=== PATIENT | male | born 1975 | race Caucasian/White ===

== ENCOUNTER 2018-11-16 15:56 | Emergency (ER) | payer SELFPAY ==
--- NOTE | 2018-11-16 16:42 | EDPHYS ---
Physician Documentation [facility] Name: Sheldon Silverman Age: 43 yrs Sex: Male : 1975 Arrival Date: 11/16/2018 Time: 16:00 Bed 13 Private MD: ED Physician Maximilian Armenta HPI: 11/16 16:34 This 43 yrs old Male presents to ER via Ambulatory with complaints of Skin cp Sore(s). 16:34 Onset: The symptoms/episode began/occurred gradually. Associated signs and symptoms: cp Pertinent negatives: abdominal pain, chest pain, fever. Historical: - Allergies: 16:16 No Known Allergies; ss - Immunization history:: Adult Immunizations up to date. - Social history:: Smoking status: Patient uses tobacco products, smokes three packs cigarettes per day. - Ebola Screening: : Patient denies exposure to infectious person Patient denies travel to an Ebola-affected area in the 21 days before illness onset. ROS: 16:35 Eyes: Negative for injury, pain, redness, and discharge. cp 16:35 Constitutional: Negative for body aches, chills, fever, poor PO intake. 16:35 ENT: Negative for drainage from ear(s), ear pain, sore throat, difficulty swallowing, difficulty handling secretions. 16:35 Cardiovascular: Negative for chest pain. 16:35 Respiratory: Negative for cough, shortness of breath. 16:35 Abdomen/GI: Negative for abdominal pain, nausea, vomiting, and diarrhea. 16:35 MS/extremity: Positive for pain, of the right foot and left foot. 16:35 Skin: Positive for of the right hand and left hand, skin sores. 16:35 All other systems are negative. Exam: 16:36 Head/Face: Normocephalic, atraumatic. cp 16:36 Constitutional: The patient appears in no acute distress, alert, awake, non-toxic, well developed, well nourished, unkempt. 16:36 Musculoskeletal/extremity: Extremities: grossly normal except: noted in the plantar surface of right foot and left foot: skin appears macerated. 16:36 Skin: cellulitis, that is mild, on the dorsal side of right and left wrists. Vital Signs: 16:16 BP 120 / 76; Pulse 82; Resp 16; Temp 98.6(TE); Pulse Ox 97% on R/A; Weight 83.91 kg; ss Height 5 ft. 9 in. (175.26 cm); Pain 8/10; 16:16 Body Mass Index 27.32 (83.91 kg, 175.26 cm) ss MDM: 16:16 Patient medically screened. cp 16:38 Data reviewed: vital signs, nurses notes, and as a result, I will discharge patient. cp Administered Medications: No medications were administered Disposition: 11/16/18 16:40 Discharged to Home. Impression: Local infection of the skin and subcutaneous tissue, unspecified - left and right wrists and feet. - Condition is Stable. - Discharge Instructions: Staphylococcal Infection. - Prescriptions for Bactroban 2 % Topical Ointment - Apply to affected area 1 application by TOPICAL route every 12 hours; 30 gram. Bactrim DS 800- 160 mg Oral Tablet - take 1 tablet by ORAL route every 12 hours for 10 days; 20 tablet. - Medication Reconciliation Form, Thank You Letter, Antibiotic Education, Prescription Opioid Use form. - Follow up: Private Physician; When: 2 - 3 days; Reason: Recheck today's complaints. - Problem is new. - Symptoms are unchanged. Addendum: 11/21/2018 09:44 Co-signature as Attending Physician, Maximilian Armenta MD I agree with the assessment and k dr plan of care. Signatures: Maximilian Armenta MD MD [facility] Jenelle Low RN RN ss Destinee Mann RN RN ph Carlton Rice, JOSELUIS PA cp Corrections: (The following items were deleted from the chart) 11/16 17:12 16:40 11/16/2018 16:40 Discharged to Home. Impression: Local infection of the skin and ph subcutaneous tissue, unspecified - left and right wrists and feet. Condition is Stable. Forms are Medication Reconciliation Form, Thank You Letter, Antibiotic Education, Prescription Opioid Use. Follow up: Private Physician; When: 2 - 3 days; Reason: Recheck today's complaints. Problem is new. Symptoms are unchanged. cp
--- NOTE | 2018-11-16 16:42 | ER ---
Nurse's Notes [facility] Name: Sheldon Silverman Age: 43 yrs Sex: Male : 1975 Arrival Date: 11/16/2018 Time: 16:00 Bed 13 Private MD: Diagnosis: Local infection of the skin and subcutaneous tissue, unspecified-left and right wrists and feet Presentation: 11/16 16:15 Presenting complaint: Patient states: skin sores to bilateral hands/ wrists that began ss "during the summer". Transition of care: patient was not received from another setting of care. Onset of symptoms is unknown. Risk Assessment: Do you want to hurt yourself or someone else? Patient reports no desire to harm self or others. Initial Sepsis Screen: Does the patient meet any 2 criteria? No. Patient's initial sepsis screen is negative. Does the patient have a suspected source of infection? No. Patient's initial sepsis screen is negative. Care prior to arrival: None. 16:15 Method Of Arrival: Ambulatory ss 16:15 Acuity: LANE 4 ss Historical: - Allergies: 16:16 No Known Allergies; ss - Immunization history:: Adult Immunizations up to date. - Social history:: Smoking status: Patient uses tobacco products, smokes three packs cigarettes per day. - Ebola Screening: : Patient denies exposure to infectious person Patient denies travel to an Ebola-affected area in the 21 days before illness onset. Screenin:30 Abuse screen: Denies threats or abuse. Denies injuries from another. Nutritional ph screening: No deficits noted. Tuberculosis screening: No symptoms or risk factors identified. Fall Risk None identified. Assessment: 16:09 Reassessment: called to triage, no answer. ss 16:30 General: Appears in no apparent distress. comfortable, slender, unkempt, Behavior is ph calm, cooperative, quiet, Denies fever, feeling ill. Pain: Denies pain. Neuro: Level of Consciousness is awake, alert, obeys commands, Oriented to person, place, time, situation. Respiratory: Airway is patent Respiratory effort is even, unlabored. Derm: Skin is healthy with good turgor, Skin is pink, warm \\T\\ dry. Wound noted Other: maría hands and wrists, blistered in appearance. Musculoskeletal: Circulation, motion, and sensation intact. Range of motion: intact in all extremities. Vital Signs: 16:16 BP 120 / 76; Pulse 82; Resp 16; Temp 98.6(TE); Pulse Ox 97% on R/A; Weight 83.91 kg; Height 5 ft. 9 in. (175.26 cm); Pain 8/10; 16:16 Body Mass Index 27.32 (83.91 kg, 175.26 cm) ED Course: 16:00 Patient arrived in ED. as 16:13 Destinee Mann, RN is Primary Nurse. ph 16:14 Carlton Rice PA is PHCP. cp 16:14 Maximilian Armenta MD is Attending Physician. cp 16:16 Triage completed. ss 16:16 Arm band placed on right wrist. 16:30 Patient has correct armband on for positive identification. Bed in low position. Call ph light in reach. Side rails up X 1. Pulse ox on. NIBP on. 17:10 No provider procedures requiring assistance completed. Patient did not have IV access ph during this emergency room visit. Administered Medications: No medications were administered Outcome: 16:40 Discharge ordered by MD. cp 17:12 Patient left the ED. ph 17:12 Discharged to home ambulatory. ph 17:12 Condition: good 17:12 Discharge instructions given to patient, Instructed on discharge instructions, follow up and referral plans. medication usage, Demonstrated understanding of instructions, follow-up care, medications, Prescriptions given X 2. Signatures: Monae Crockett Shelby, RN RN Destinee Mann RN RN Carlton Rice PA PA cp
[2018-11-16 18:22] VITALS: BP 120/76; TEMP 98.6; O2SAT 97
== END 2018-11-16 17:12 | disposition home or self-care (01) ==
LOC: ER 15:56
DX: L08.9 Local infection of the skin and subcutaneous tissue, unspecified (principal); F17.210 Nicotine dependence, cigarettes, uncomplicated
CPT/HCPCS: 99283

== ENCOUNTER 2018-11-25 06:10 | Emergency (ER) | payer SELFPAY ==
--- NOTE | 2018-11-25 06:38 | ER ---
Nurse's Notes [facility] Name: Sheldon Silverman Age: 43 yrs Sex: Male : 1975 Arrival Date: 11/25/2018 Time: 06:22 Bed 20 Private MD: Diagnosis: Low back pain Presentation: 11/25 06:24 Presenting complaint: EMS states: "Nontraumatic low back pain since patient walked from [address] to [place]." Patient said he started walking since March 2015 until 2019. Transition of care: patient was not received from another setting of care. Onset of symptoms is unknown. Risk Assessment: Do you want to hurt yourself or someone else? Patient reports no desire to harm self or others. Initial Sepsis Screen: Does the patient meet any 2 criteria? HR > 90 bpm. Does the patient have a suspected source of infection? No. Patient's initial sepsis screen is negative. Care prior to arrival: None. 06:24 Method Of Arrival: EMS: [facility] 06:24 Acuity: LANE 4 cc3 Triage Assessment: 06:20 General: Appears in no apparent distress. comfortable, Behavior is calm, cooperative, cc3 appropriate for age. Pain: Complains of pain in low back Pain currently is 10 out of 10 on a pain scale. Quality of pain is described as aching, Pain began years ago. EENT: No signs and/or symptoms were reported regarding the EENT system. Neuro: Level of Consciousness is awake, alert, obeys commands, Oriented to person, place, time. Cardiovascular: Denies chest pain, Capillary refill < 3 seconds Patient's skin is warm and dry. Respiratory: Airway is patent Respiratory effort is even, unlabored, Respiratory pattern is regular, symmetrical. GI: Abdomen is round. : No signs and/or symptoms were reported regarding the genitourinary system. Derm: Skin has lesions on generalized all over his body has blisters on generalized on all over his body. Musculoskeletal: Circulation, motion, and sensation intact. Range of motion: intact in all extremities. Historical: - Allergies: 06:20 No Known Allergies; cc3 - Home Meds: 06:20 Ibuprofen Oral [Active]; cc3 - PSHx: 06:20 breast plate titanium; cc3 - Immunization history:: Adult Immunizations not up to date. - Social history:: Smoking status: Patient uses tobacco products, cigars. - Ebola Screening: : No symptoms or risks identified at this time. Screenin:20 Abuse screen: Denies threats or abuse. Denies injuries from another. Nutritional cc3 screening: No deficits noted. Tuberculosis screening: No symptoms or risk factors identified. Fall Risk Ambulatory Aid- None/Bed Rest/Nurse Assist (0 pts). Gait- Normal/Bed Rest/Wheelchair (0 pts) Mental Status- Oriented to own ability (0 pts). Assessment: 06:20 General: see triage assessment. cc3 07:00 Reassessment: Patient appears in no apparent distress at this time. Patient and/or cc3 family updated on plan of care and expected duration. Pain level reassessed. Patient is alert, oriented x 3, equal unlabored respirations, skin warm/dry/pink. NATI Laws discharged the patient home with prescription. NO IV cannula in situ. Patient left ER vitally stable and ambulatory. No valuables left in the patient's room. Patient denies pain at this time. Patient states feeling better. Patient states symptoms have improved. Vital Signs: 06:22 BP 123 / 85; Pulse 104; Resp 18 S; Temp 99.1(O); Pulse Ox 100% on R/A; Weight 124.74 kg cc3 (R); Height 5 ft. 9 in. (175.26 cm) (R); Pain 10/10; 06:22 Body Mass Index 40.61 (124.74 kg, 175.26 cm) cc3 ED Course: 06:20 Patient has correct armband on for positive identification. Bed in low position. Call cc3 light in reach. Side rails up X 1. Pulse ox on. NIBP on. 06:20 Arm band placed on left wrist. Patient notified of wait time. cc3 06:22 Patient arrived in ED. cc3 06:22 Eusebia Haq FNP-C is [facility]. snw 06:22 Carlton Garcia MD is Attending Physician. snw 06:27 Triage completed. cc3 07:00 No provider procedures requiring assistance completed. Patient did not have IV access cc3 during this emergency room visit. Administered Medications: 06:50 Drug: Flexeril 10 mg Route: PO; cc3 07:00 Follow up: Response: No adverse reaction cc3 Outcome: 06:36 Discharge ordered by MD. carlson 07:00 Discharged to home ambulatory. cc3 07:00 Condition: stable 07:00 Discharge instructions given to patient, Instructed on discharge instructions, follow up and referral plans. medication usage, Demonstrated understanding of instructions, follow-up care, medications, Prescriptions given X 1. 07:09 Patient left the ED. cc3 Signatures: Eusebia Haq, QUETA-C BUSINESS PLANNER-Csnw Romina Russ cc3
--- NOTE | 2018-11-25 06:38 | EDPHYS ---
Physician Documentation [facility] Name: Sheldon Silverman Age: 43 yrs Sex: Male : 1975 Arrival Date: 11/25/2018 Time: 06:22 Bed 20 Private MD: ED Physician Carlton Garcia HPI: 11/25 06:41 This 43 yrs old Male presents to ER via EMS with complaints of back pain. snw 06:41 The patient presents with pain and tenderness. The symptoms are located in the low snw back. Onset: The symptoms/episode began/occurred at an unknown time. The pain does not radiate. The problem was sustained from unknown cause. Modifying factors: The patient symptoms are alleviated by motrin. Severity of symptoms: At their worst the symptoms were moderate. It is unknown whether or not the patient has had similar symptoms in the past. The patient has been recently seen at the [facility] Emergency Department, for unrelated complaints. Historical: - Allergies: 06:20 No Known Allergies; cc3 - Home Meds: 06:20 Ibuprofen Oral [Active]; cc3 - PSHx: 06:20 breast plate titanium; cc3 - Immunization history:: Adult Immunizations not up to date. - Social history:: Smoking status: Patient uses tobacco products, cigars. - Ebola Screening: : No symptoms or risks identified at this time. ROS: 06:40 Constitutional: Negative for fever, chills, and weight loss, Eyes: Negative for injury, snw pain, redness, and discharge, ENT: Negative for injury, pain, and discharge, Neck: Negative for injury, pain, and swelling, Cardiovascular: Negative for chest pain, palpitations, and edema, Respiratory: Negative for shortness of breath, cough, wheezing, and pleuritic chest pain, Abdomen/GI: Negative for abdominal pain, nausea, vomiting, diarrhea, and constipation, : Negative for injury, bleeding, discharge, and swelling, MS/Extremity: Negative for injury and deformity, Skin: Negative for injury, rash, and discoloration, Neuro: Negative for headache, weakness, numbness, tingling, and seizure. 06:40 Back: Positive for pain at rest, pain with movement, of the low back area. Exam: 06:38 Head/Face: Normocephalic, atraumatic. Eyes: Pupils equal round and reactive to light, snw extra-ocular motions intact. Lids and lashes normal. Conjunctiva and sclera are non-icteric and not injected. Cornea within normal limits. Periorbital areas with no swelling, redness, or edema. ENT: Nares patent. No nasal discharge, no septal abnormalities noted. Tympanic membranes are normal and external auditory canals are clear. Oropharynx with no redness, swelling, or masses, exudates, or evidence of obstruction, uvula midline. Mucous membranes moist. Neck: Trachea midline, no thyromegaly or masses palpated, and no cervical lymphadenopathy. Supple, full range of motion without nuchal rigidity, or vertebral point tenderness. No Meningismus. Chest/axilla: Normal chest wall appearance and motion. Nontender with no deformity. No lesions are appreciated. Cardiovascular: Regular rate and rhythm with a normal S1 and S2. No gallops, murmurs, or rubs. Normal PMI, no JVD. No pulse deficits. Respiratory: Lungs have equal breath sounds bilaterally, clear to auscultation and percussion. No rales, rhonchi or wheezes noted. No increased work of breathing, no retractions or nasal flaring. 06:38 Skin: Warm, dry with normal turgor. Normal color with no rashes, no lesions, and no evidence of cellulitis. MS/ Extremity: Pulses equal, no cyanosis. Neurovascular intact. Full, normal range of motion. Neuro: Awake and alert, GCS 15, oriented to person, place, time, and situation. Cranial nerves II-XII grossly intact. Motor strength 5/5 in all extremities. Sensory grossly intact. Cerebellar exam normal. Normal gait. 06:38 Constitutional: The patient appears alert, awake, slow to answer, mild flight of ideas 06:38 Abdomen/GI: Inspection: abdomen appears normal, Bowel sounds: normal, Palpation: mild abdominal tenderness, in the left lower quadrant. 06:38 Back: normal spinal alignment noted, CVA tenderness, is absent. 06:38 Neuro: Exam negative for acute changes. 06:38 Psych: Behavior/mood is cooperative, Affect is flat, Patient has no thoughts/intents to harm self or others. Vital Signs: 06:22 BP 123 / 85; Pulse 104; Resp 18 S; Temp 99.1(O); Pulse Ox 100% on R/A; Weight 124.74 kg cc3 (R); Height 5 ft. 9 in. (175.26 cm) (R); Pain 1010; 06:22 Body Mass Index 40.61 (124.74 kg, 175.26 cm) cc3 MDM: 06:23 Patient medically screened. snw 06:40 Data reviewed: vital signs, nurses notes. Data interpreted: Pulse oximetry: on room air snw is 100 %. Interpretation: normal. Counseling: I had a detailed discussion with the patient and/or guardian regarding: the historical points, exam findings, and any diagnostic results supporting the discharge/admit diagnosis, the presence of at least one elevated blood pressure reading (>120/80) during this emergency department visit, the need for outpatient follow up, to return to the emergency department if symptoms worsen or persist or if there are any questions or concerns that arise at home. Special discussion: Based on the history and exam findings, there is no indication for further emergent testing or inpatient evaluation. I discussed with the patient/guardian the need to see the primary care provider for further evaluation of the symptoms. Administered Medications: 06:50 Drug: Flexeril 10 mg Route: PO; cc3 07:00 Follow up: Response: No adverse reaction cc3 Disposition: 08:10 Co-signature as Attending Physician, Carlton Garcia MD I agree with the assessment and george plan of care. Disposition: 11/25/18 06:36 Discharged to Home. Impression: Low back pain. - Condition is Stable. - Discharge Instructions: Back Pain, Adult, Back Exercises, Back Injury Prevention. - Prescriptions for Cyclobenzaprine 10 mg Oral Tablet - take 1 tablet by ORAL route every 8 hours As needed; 30 tablet. - Medication Reconciliation Form, Thank You Letter, Antibiotic Education, Prescription Opioid Use form. - Follow up: Private Physician; When: 1 week; Reason: Recheck today's complaints, Continuance of care. Signatures: Carlton Garcia MD MD cha Therrien, Shelly, LOGGER-C LOGGER-Ziggyw Romina Russ cc3 Corrections: (The following items were deleted from the chart) 07:09 06:36 11/25/2018 06:36 Discharged to Home. Impression: Low back pain. Condition is cc3 Stable. Forms are Medication Reconciliation Form, Thank You Letter, Antibiotic Education, Prescription Opioid Use. Follow up: Private Physician; When: 1 week; Reason: Recheck today's complaints, Continuance of care. snw
[2018-11-25] MEDS ORDERED: CYCLOBENZAPRINE 10 MG TAB ONE (06:44)
[2018-11-25 07:13] VITALS: BP 123/85; TEMP 99.1; O2SAT 100
== END 2018-11-25 07:09 | disposition home or self-care (01) ==
LOC: ER 06:10
DX: M54.5 Low back pain (principal); Z72.0 Tobacco use
CPT/HCPCS: 99284

== ENCOUNTER 2018-11-27 12:17 | Emergency (ER) | payer SELFPAY ==
--- NOTE | 2018-11-27 13:49 | ER ---
Nurse's Notes [facility] Name: Sheldon Silverman Age: 43 yrs Sex: Male : 1975 Arrival Date: 11/27/2018 Time: 12:21 Bed 25 Private MD: Diagnosis: Activity, sleeping-now awake Presentation: 11/27 12:24 Presenting complaint: EMS states: patient was sleeping in the bus stop, he looks mg2 dehydrated. somebody called the grocery stock clerk saying that patient was probably convulsing/ shaking in the bus stop. he was here 2 days ago for back pain. Transition of care: patient was not received from another setting of care. Onset of symptoms was November 27, 2018. Risk Assessment: Do you want to hurt yourself or someone else? Patient reports no desire to harm self or others. Initial Sepsis Screen: Does the patient meet any 2 criteria? No. Patient's initial sepsis screen is negative. Does the patient have a suspected source of infection? No. Patient's initial sepsis screen is negative. Care prior to arrival: None. 12:24 Method Of Arrival: EMS: [facility] mg2 12:24 Acuity: LANE 3 mg2 Historical: - Allergies: 12:27 No Known Allergies; mg2 - Home Meds: 12:27 Ibuprofen Oral [Active]; mg2 - PMHx: 12:27 None; mg2 - PSHx: 12:27 None; mg2 - Immunization history:: Flu vaccine status is unknown. - Social history:: Smoking status: Patient uses tobacco products, Patient uses Patient/guardian denies using alcohol, street drugs, The patient lives with family. - Ebola Screening: : No symptoms or risks identified at this time. - Family history:: not pertinent. Screenin:51 Abuse screen: Denies threats or abuse. Denies injuries from another. Nutritional mg2 screening: No deficits noted. Tuberculosis screening: No symptoms or risk factors identified. Fall Risk. Fall Risk. Assessment: 12:52 General: Appears in no apparent distress. comfortable, Behavior is calm, cooperative. mg2 Pain: Denies pain. 13:58 Neuro: Level of Consciousness is awake, alert, obeys commands, Oriented to person, mg2 place, time, situation. Cardiovascular: Capillary refill < 3 seconds Patient's skin is warm and dry. Respiratory: Airway is patent Respiratory effort is even, unlabored, Respiratory pattern is regular, symmetrical. GI: No signs and/or symptoms were reported involving the gastrointestinal system. : No signs and/or symptoms were reported regarding the genitourinary system. EENT: No signs and/or symptoms were reported regarding the EENT system. Derm: Skin is intact, Skin is normal. Musculoskeletal: Circulation, motion, and sensation intact. Capillary refill < 3 seconds. Vital Signs: 12:26 Weight 124.74 kg; Height 6 ft. 0 in. (182.88 cm); mg2 12:50 BP 99 / 65; Pulse 102; Resp 18; Temp 97.7(O); Pulse Ox 95% on R/A; mg2 13:50 BP 100 / 62; Pulse 95; Resp 18; Temp 98; Pulse Ox 100% on R/A; mg2 12:26 Body Mass Index 37.30 (124.74 kg, 182.88 cm) mg2 ED Course: 12:21 Patient arrived in ED. mg2 12:23 Sanaz Vallejo MD is Attending Physician. ma2 12:23 Jose Mackey, LOAN is Primary Nurse. mg2 12:26 Triage completed. mg2 12:28 Arm band placed on. mg2 13:57 No provider procedures requiring assistance completed. Patient did not have IV access mg2 during this emergency room visit. 13:59 Patient has correct armband on for positive identification. mg2 Administered Medications: No medications were administered Outcome: 13:48 Discharge ordered by . ma2 13:57 Discharged to home ambulatory. mg2 13:57 Condition: stable 13:57 Discharge instructions given to patient, Instructed on discharge instructions, follow up and referral plans. Demonstrated understanding of instructions, follow-up care. 14:43 Patient left the ED. mg2 Signatures: Sanaz Vallejo MD MD tn2 Jose Mackey, RN RN mg2 Corrections: (The following items were deleted from the chart) 12:50 12:50 BP 99 / 65; Pulse 102bpm; Resp 18bpm; Pulse Ox 95% RA; mg2 mg2
--- NOTE | 2018-11-27 13:50 | EDPHYS ---
Physician Documentation [facility] Name: Sheldon Silverman Age: 43 yrs Sex: Male : 1975 Arrival Date: 11/27/2018 Time: 12:21 Bed 25 Private MD: ED Physician Sanaz Vallejo HPI: 11/27 13:13 This 43 yrs old Male presents to ER via EMS with complaints of sleeping. ma2 13:13 [place] bus [place] by ems, was brought in to er for evaluation, he has no ma2 symptoms now and is back to baseline. . Onset: The symptoms/episode began/occurred gradually, 1 day(s) ago. Severity of symptoms: At their worst the symptoms were very mild in the emergency department the symptoms are unchanged have resolved. The patient has not experienced similar symptoms in the past. Historical: - Allergies: 12:27 No Known Allergies; mg2 - Home Meds: 12:27 Ibuprofen Oral [Active]; mg2 - PMHx: 12:27 None; mg2 - PSHx: 12:27 None; mg2 - Immunization history:: Flu vaccine status is unknown. - Social history:: Smoking status: Patient uses tobacco products, Patient uses Patient/guardian denies using alcohol, street drugs, The patient lives with family. - Ebola Screening: : No symptoms or risks identified at this time. - Family history:: not pertinent. ROS: 13:13 Constitutional: Negative for fever, chills, and weight loss. ma2 13:13 All other systems are negative. Exam: 13:13 Constitutional: This is a well developed, well nourished patient who is awake, alert, ma2 and in no acute distress. Head/Face: Normocephalic, atraumatic. ENT: Nares patent. No nasal discharge, no septal abnormalities noted. Tympanic membranes are normal and external auditory canals are clear. Oropharynx with no redness, swelling, or masses, exudates, or evidence of obstruction, uvula midline. Mucous membranes moist. Neck: Trachea midline, no thyromegaly or masses palpated, and no cervical lymphadenopathy. Supple, full range of motion without nuchal rigidity, or vertebral point tenderness. No Meningismus. Chest/axilla: Normal chest wall appearance and motion. Nontender with no deformity. No lesions are appreciated. Cardiovascular: Regular rate and rhythm with a normal S1 and S2. No gallops, murmurs, or rubs. Normal PMI, no JVD. No pulse deficits. Respiratory: Lungs have equal breath sounds bilaterally, clear to auscultation and percussion. No rales, rhonchi or wheezes noted. No increased work of breathing, no retractions or nasal flaring. Abdomen/GI: Soft, non-tender, with normal bowel sounds. No distension or tympany. No guarding or rebound. No evidence of tenderness throughout. Back: No spinal tenderness. No costovertebral tenderness. Full range of motion. Skin: Warm, dry with normal turgor. Normal color with no rashes, no lesions, and no evidence of cellulitis. MS/ Extremity: Pulses equal, no cyanosis. Neurovascular intact. Full, normal range of motion. Neuro: Awake and alert, GCS 15, oriented to person, place, time, and situation. Cranial nerves II-XII grossly intact. Motor strength 5/5 in all extremities. Sensory grossly intact. Cerebellar exam normal. Normal gait. Vital Signs: 12:26 Weight 124.74 kg; Height 6 ft. 0 in. (182.88 cm); mg2 12:50 BP 99 / 65; Pulse 102; Resp 18; Temp 97.7(O); Pulse Ox 95% on R/A; mg2 13:50 BP 100 / 62; Pulse 95; Resp 18; Temp 98; Pulse Ox 100% on R/A; mg2 12:26 Body Mass Index 37.30 (124.74 kg, 182.88 cm) mg2 MDM: 12:23 Patient medically screened. ma2 13:13 Differential Diagnosis DD includes "was sleeping", drug use, vs narcolepsies, vs ma2 alcohol use, he is back to baseline and would like to eat and be discharged . Data reviewed: vital signs, nurses notes. Counseling: I had a detailed discussion with the patient and/or guardian regarding: the historical points, exam findings, and any diagnostic results supporting the discharge/admit diagnosis, the presence of at least one elevated blood pressure reading (>120/80) during this emergency department visit, the need for outpatient follow up. Administered Medications: No medications were administered Disposition: 11/27/18 13:48 Discharged to Home. Impression: Activity, sleeping - now awake . - Condition is Stable. - Discharge Instructions: What You Need To Know About Illegal Drug Use and Dependence, Youth. - Medication Reconciliation Form, Thank You Letter, Antibiotic Education, Prescription Opioid Use form. - Follow up: Private Physician; When: Tomorrow; Reason: Continuance of care. Signatures: Sanaz Vallejo MD MD ok2 Jose Mackey RN RN mg2 Corrections: (The following items were deleted from the chart) 13:11 13:05 Blood Transfusion Consent ordered. ma2 mg2 14:43 13:48 11/27/2018 13:48 Discharged to Home. Impression: Activity, sleeping - now awake . mg2 Condition is Stable. Forms are Medication Reconciliation Form, Thank You Letter, Antibiotic Education, Prescription Opioid Use. Follow up: Private Physician; When: Tomorrow; Reason: Continuance of care. ma2
[2018-11-27 14:58] VITALS: BP 100/62; TEMP 98; O2SAT 100
== END 2018-11-27 14:43 | disposition home or self-care (01) ==
LOC: ER 12:17
DX: G47.10 Hypersomnia, unspecified (principal); Z72.0 Tobacco use
CPT/HCPCS: 99283

== ENCOUNTER 2020-09-05 12:44 | Emergency (ER) | payer SELFPAY ==
--- OUTSIDE RECORDS SUMMARY | 2020-09-05 12:51 | XMS REPORT | Continuity of Care Document ---
:1975 Author Organization [facility] t Address [address] [place] [address] Care Team Providers Name Role Phone Unavailable Unavailable Unavailable Payers Payer Name Policy Type Policy Number Effective Date Expiration Date S ource Problems This patient has no known problems. Allergies, Adverse Reactions, Alerts Allergy Allergy Status Severity Reaction(s) Onset Inactive Treating Comm ents Source Name Type Date Date Clinician No DA Active U [facility] 07-28 [facility] [place] [facility] Medications This patient has no known medications. Procedures This patient has no known procedures. Results Test Description Test Time Test Comments Results Result Comments Source COMPREHENSIVE METABOLIC PANEL 2019-08-02 06:22:00 Test Item Value Reference Range Interpretation Comme nts SODIUM (test code = NA) 136 MMOL/L 137-145 L POTASSIUM (test code = K) 4.2 MMOL/L 3.5-5.1 N CHLORIDE (test code = CL) 103 MMOL/L 98-107 N CARBON DIOXIDE (test code = CO2) 30 MMOL/L 22-30 N GLUCOSE (test code = GLU) 101 MG/DL 74-106 N BLOOD UREA NITROGEN (test code = 24 MG/DL 9-20 H BUN) GLOMERULAR FILTRATION RATE (test 59 Reporting units: ml/min/1.73 code = GFR) m2 (Modified M DRD Formula)Referen ce Range: > or = 60 ml/min/1.7 3 m2 CREATININE (test code = CREAT) 1.50 MG/DL 0.66-1.25 H TOTAL PROTEIN (test code = PROT) 7.2 G/DL 6.2-7.6 N ALBUMIN (test code = ALB) 3.3 G/DL 3.5-5.0 L CALCIUM (test code = CA) 8.4 MG/DL 8.4-10.2 N BILIRUBIN TOTAL (test code = 0.5 MG/DL 0.2-1.3 N BILT) SGOT/AST (test code = AST) 20 UNITS/L 17-59 N SGPT/ALT (test code = ALT) 17 UNITS/L <50 ALKALINE PHOSPHATASE (test code 119 UNITS/L 38-126 N = ALKP) [id number] 06:22:00 Test Item Value Reference Range Interpretation Comments MAGNESIUM (test code = MAG) 2.1 MG/DL 1.6-2.3 N COMPREHENSIVE METABOLIC [id number] 06:21:00 Test Item Value Reference Range Interpretation Comments SODIUM (test code = 136 MMOL/L 137-145 L NA) POTASSIUM (test code = 4.2 MMOL/L 3.5-5.1 N K) CHLORIDE (test code = 103 MMOL/L 98-107 N CL) CARBON DIOXIDE (test 30 MMOL/L 22-30 N code = CO2) GLUCOSE (test code = MG/DL 74-106 GLU) BLOOD UREA NITROGEN MG/DL 9-20 (test code = BUN) GLOMERULAR FILTRATION 59 Report ing units: RATE (test code = GFR) ml/mi n/1.73 m2 (Modified MDRD Formula)Referen ce Range: > or = 6 0 ml/min/1.73 m2 CREATININE (test code 1.50 MG/DL 0.66-1.25 H = CREAT) TOTAL PROTEIN (test 7.2 G/DL 6.2-7.6 N code = PROT) ALBUMIN (test code = 3.3 G/DL 3.5-5.0 L ALB) CALCIUM (test code = MG/DL 8.7-9.7 CA) BILIRUBIN TOTAL (test 0.5 MG/DL 0.2-1.3 N code = BILT) SGOT/AST (test code = 20 UNITS/L 17-59 N AST) SGPT/ALT (test code = UNITS/L <50 ALT) ALKALINE PHOSPHATASE 119 UNITS/L 38-126 N (test code = ALKP) [id number] 06:21:00 Test Item Value Reference Range Interpretation Comments MAGNESIUM (test code = MAG) MG/DL 1.6-2.3 COMPREHENSIVE METABOLIC [id number] 06:19:00 Test Item Value Reference Range Interpretation Comments SODIUM (test code = NA) 136 MMOL/L 137-145 L POTASSIUM (test code = K) 4.2 MMOL/L 3.5-5.1 N CHLORIDE (test code = CL) 103 MMOL/L 98-107 N CARBON DIOXIDE (test code = CO2) MMOL/L 22-30 GLUCOSE (test code = GLU) MG/DL 74-106 BLOOD UREA NITROGEN (test code = MG/DL 9-20 BUN) GLOMERULAR FILTRATION RATE (test code = GFR) CREATININE (test code = CREAT) MG/DL 0.66-1.25 TOTAL PROTEIN (test code = PROT) G/DL 6.2-7.6 ALBUMIN (test code = ALB) 3.3 G/DL 3.5-5.0 L CALCIUM (test code = CA) MG/DL 8.7-9.7 BILIRUBIN TOTAL (test code = BILT) MG/DL 0.2-1.3 SGOT/AST (test code = AST) UNITS/L 15-37 SGPT/ALT (test code = ALT) UNITS/L <50 ALKALINE PHOSPHATASE (test code = UNITS/L 38-126 ALKP) [id number] 06:19:00 Test Item Value Reference Range Interpretation Comments MAGNESIUM (test code = MAG) MG/DL 1.6-2.3 COMPREHENSIVE METABOLIC [id number] 06:18:00 Test Item Value Reference Range Interpretation Comments SODIUM (test code = NA) MMOL/L 137-145 POTASSIUM (test code = K) MMOL/L 3.5-5.1 CHLORIDE (test code = CL) 103 MMOL/L 98-107 N CARBON DIOXIDE (test code = CO2) MMOL/L 22-30 GLUCOSE (test code = GLU) MG/DL 74-106 BLOOD UREA NITROGEN (test code = MG/DL 9-20 BUN) GLOMERULAR FILTRATION RATE (test code = GFR) CREATININE (test code = CREAT) MG/DL 0.66-1.25 TOTAL PROTEIN (test code = PROT) G/DL 6.2-7.6 ALBUMIN (test code = ALB) 3.3 G/DL 3.5-5.0 L CALCIUM (test code = CA) MG/DL 8.7-9.7 BILIRUBIN TOTAL (test code = BILT) MG/DL 0.2-1.3 SGOT/AST (test code = AST) UNITS/L 15-37 SGPT/ALT (test code = ALT) UNITS/L <50 ALKALINE PHOSPHATASE (test code = UNITS/L 38-126 ALKP) [id number] 06:18:00 Test Item Value Reference Range Interpretation Comments MAGNESIUM (test code = MAG) MG/DL 1.6-2.3 CBC W/AUTO [id number] 06:07:00 Test Item Value Reference Range Interpretation Comments WHITE BLOOD CELL (test code = 6.9 K/MM3 3.8-9.8 N WBC) RED BLOOD CELL (test code = 3.57 M/MM3 3.95-5.67 L RBC) HEMOGLOBIN (test code = HGB) 11.3 G/DL 12.4-16.7 L HEMATOCRIT (test code = HCT) 34.2 % 35.9-49.5 L MEAN CELL VOLUME (test code = 96 fL 81.7-96.1 N MCV) MEAN CELL HGB (test code = MCH) 31.7 pg 27.6-33.2 N MEAN CELL HGB CONCETRATION 33.0 % 32.9-35.5 N (test code = MCHC) RED CELL DISTRIBUTION WIDTH 12.5 % 12.1-15.2 N (test code = RDW) PLATELET COUNT (test code = 208 K/MM3 129-368 N PLT) MEAN PLATELET VOLUME (test code 10.8 fl 7.4-10.4 H = MPV) NEUTROPHIL % (test code = NT%) 66.9 % 43-75 N IMMATURE GRANULOCYTE % (test 0.7 % 0.0-2.0 N code = IG%) LYMPHOCYTE % (test code = LY%) 20.3 % 14-44 N MONOCYTE % (test code = MO%) 10.4 % 4-13 N EOSINOPHIL % (test code = EO%) 1.4 % 0-6 N BASOPHIL % (test code = BA%) 0.3 % 0-2 N NUCLEATED RBC % (test code = 0.0 % 0-1.0 N NRBC%) NEUTROPHIL # (test code = NT#) 4.62 K/mm3 2.0-7.6 N IMMATURE GRANULOCYTE # (test 0.05 x10 3/uL 0-0.03 H code = IG#) LYMPHOCYTE # (test code = LY#) 1.40 K/mm3 1.0-3.8 N MONOCYTE # (test code = MO#) 0.72 K/mm3 0.1-0.8 N EOSINOPHIL # (test code = EO#) 0.10 K/mm3 0.0-0.2 N BASOPHIL # (test code = BA#) 0.02 K/mm3 0.0-0.2 N NUCLEATED RBC # (test code = 0.00 K/mm3 0.0-0.1 N NRBC#) [id number] 13:06:00 Test Item Value Reference Range Interpretation Comments VANCOMYCIN (test code = VANCO) 21.6 mcg/ML 5.0-26.0 N COMPREHENSIVE METABOLIC [id number] 06:00:00 Test Item Value Reference Range Interpretation Comments SODIUM (test code = 134 MMOL/L 137-145 L NA) POTASSIUM (test code = 4.1 MMOL/L 3.5-5.1 N K) CHLORIDE (test code = 103 MMOL/L 98-107 N CL) CARBON DIOXIDE (test 27 MMOL/L 22-30 N code = CO2) GLUCOSE (test code = 109 MG/DL 74-106 H GLU) BLOOD UREA NITROGEN 27 MG/DL 9-20 H (test code = BUN) GLOMERULAR FILTRATION 55 Report ing units: RATE (test code = GFR) ml/mi n/1.73 m2 (Modified MDRD Formula)Referen ce Range: > or = 6 0 ml/min/1.73 m2 CREATININE (test code 1.60 MG/DL 0.66-1.25 H = CREAT) TOTAL PROTEIN (test 7.0 G/DL 6.2-7.6 N code = PROT) ALBUMIN (test code = 3.1 G/DL 3.5-5.0 L ALB) CALCIUM (test code = 8.1 MG/DL 8.4-10.2 L CA) BILIRUBIN TOTAL (test 0.2 MG/DL 0.2-1.3 N code = BILT) SGOT/AST (test code = 23 UNITS/L 17-59 N AST) SGPT/ALT (test code = 17 UNITS/L <50 ALT) ALKALINE PHOSPHATASE 129 UNITS/L 38-126 H (test code = ALKP) [id number] 06:00:00 Test Item Value Reference Range Interpretation Comments MAGNESIUM (test code = MAG) 1.9 MG/DL 1.6-2.3 N COMPREHENSIVE METABOLIC [id number] 05:56:00 Test Item Value Reference Range Interpretation Comments SODIUM (test code = NA) 134 MMOL/L 137-145 L POTASSIUM (test code = 4.1 MMOL/L 3.5-5.1 N K) CHLORIDE (test code = 103 MMOL/L 98-107 N CL) CARBON DIOXIDE (test 27 MMOL/L 22-30 N code = CO2) GLUCOSE (test code = MG/DL 74-106 GLU) BLOOD UREA NITROGEN MG/DL 9-20 (test code = BUN) GLOMERULAR FILTRATION 55 Report ing units: RATE (test code = GFR) ml/mi n/1.73 m2 (Modified MDRD Formula)Referen ce Range: > or = 6 0 ml/min/1.73 m2 CREATININE (test code = 1.60 MG/DL 0.66-1.25 H CREAT) TOTAL PROTEIN (test 7.0 G/DL 6.2-7.6 N code = PROT) ALBUMIN (test code = 3.1 G/DL 3.5-5.0 L ALB) CALCIUM (test code = MG/DL 8.7-9.7 CA) BILIRUBIN TOTAL (test 0.2 MG/DL 0.2-1.3 N code = BILT) SGOT/AST (test code = 23 UNITS/L 17-59 N AST) SGPT/ALT (test code = UNITS/L <50 ALT) ALKALINE PHOSPHATASE UNITS/L 38-126 (test code = ALKP) [id number] 05:56:00 Test Item Value Reference Range Interpretation Comments MAGNESIUM (test code = MAG) MG/DL 1.6-2.3 COMPREHENSIVE METABOLIC [id number] 05:54:00 Test Item Value Reference Range Interpretation Comments SODIUM (test code = NA) 134 MMOL/L 137-145 L POTASSIUM (test code = K) 4.1 MMOL/L 3.5-5.1 N CHLORIDE (test code = CL) 103 MMOL/L 98-107 N CARBON DIOXIDE (test code = CO2) MMOL/L 22-30 GLUCOSE (test code = GLU) MG/DL 74-106 BLOOD UREA NITROGEN (test code = MG/DL 9-20 BUN) GLOMERULAR FILTRATION RATE (test code = GFR) CREATININE (test code = CREAT) MG/DL 0.66-1.25 TOTAL PROTEIN (test code = PROT) G/DL 6.2-7.6 ALBUMIN (test code = ALB) 3.1 G/DL 3.5-5.0 L CALCIUM (test code = CA) MG/DL 8.7-9.7 BILIRUBIN TOTAL (test code = BILT) MG/DL 0.2-1.3 SGOT/AST (test code = AST) UNITS/L 15-37 SGPT/ALT (test code = ALT) UNITS/L <50 ALKALINE PHOSPHATASE (test code = UNITS/L 38-126 ALKP) [id number] 05:54:00 Test Item Value Reference Range Interpretation Comments MAGNESIUM (test code = MAG) MG/DL 1.6-2.3 COMPREHENSIVE METABOLIC [id number] 05:53:00 Test Item Value Reference Range Interpretation Comments SODIUM (test code = NA) MMOL/L 137-145 POTASSIUM (test code = K) MMOL/L 3.5-5.1 CHLORIDE (test code = CL) MMOL/L 98-107 CARBON DIOXIDE (test code = CO2) MMOL/L 22-30 GLUCOSE (test code = GLU) MG/DL 74-106 BLOOD UREA NITROGEN (test code = MG/DL 9-20 BUN) GLOMERULAR FILTRATION RATE (test code = GFR) CREATININE (test code = CREAT) MG/DL 0.66-1.25 TOTAL PROTEIN (test code = PROT) G/DL 6.2-7.6 ALBUMIN (test code = ALB) 3.1 G/DL 3.5-5.0 L CALCIUM (test code = CA) MG/DL 8.7-9.7 BILIRUBIN TOTAL (test code = BILT) MG/DL 0.2-1.3 SGOT/AST (test code = AST) UNITS/L 15-37 SGPT/ALT (test code = ALT) UNITS/L <50 ALKALINE PHOSPHATASE (test code = UNITS/L 38-126 ALKP) [id number] 05:53:00 Test Item Value Reference Range Interpretation Comments MAGNESIUM (test code = MAG) MG/DL 1.6-2.3 CBC W/AUTO [id number] 05:40:00 Test Item Value Reference Range Interpretation Comments WHITE BLOOD CELL (test code = 6.4 K/MM3 3.8-9.8 N WBC) RED BLOOD CELL (test code = 3.55 M/MM3 3.95-5.67 L RBC) HEMOGLOBIN (test code = HGB) 11.1 G/DL 12.4-16.7 L HEMATOCRIT (test code = HCT) 33.9 % 35.9-49.5 L MEAN CELL VOLUME (test code = 96 fL 81.7-96.1 N MCV) MEAN CELL HGB (test code = MCH) 31.3 pg 27.6-33.2 N MEAN CELL HGB CONCETRATION 32.7 % 32.9-35.5 L (test code = MCHC) RED CELL DISTRIBUTION WIDTH 12.6 % 12.1-15.2 N (test code = RDW) PLATELET COUNT (test code = 188 K/MM3 129-368 PLT) MEAN PLATELET VOLUME (test code 11.2 fl 7.4-10.4 H = MPV) NEUTROPHIL % (test code = NT%) 70.8 % 43-75 N IMMATURE GRANULOCYTE % (test 0.6 % 0.0-2.0 N code = IG%) LYMPHOCYTE % (test code = LY%) 17.4 % 14-44 N MONOCYTE % (test code = MO%) 10.1 % 4-13 N EOSINOPHIL % (test code = EO%) 0.8 % 0-6 N BASOPHIL % (test code = BA%) 0.3 % 0-2 N NUCLEATED RBC % (test code = 0.0 % 0-1.0 N NRBC%) NEUTROPHIL # (test code = NT#) 4.56 K/mm3 2.0-7.6 N IMMATURE GRANULOCYTE # (test 0.04 x10 3/uL 0-0.03 H code = IG#) LYMPHOCYTE # (test code = LY#) 1.12 K/mm3 1.0-3.8 N MONOCYTE # (test code = MO#) 0.65 K/mm3 0.1-0.8 N EOSINOPHIL # (test code = EO#) 0.05 K/mm3 0.0-0.2 N BASOPHIL # (test code = BA#) 0.02 K/mm3 0.0-0.2 N NUCLEATED RBC # (test code = 0.00 K/mm3 0.0-0.1 N NRBC#) VALPROIC ACID (DEPAKENE)2019-07-29 20:07:00 Test Item Value Reference Range Interpretation Comments VALPROIC ACID 60.8 MCG/ML 50-100 N VALPROIC ACID (DEPAKENE) (test code REFERE NCE RANGE: = VALP) mcg/mLMinimal: 50.0Therapeutic : 50.0-120.0Possi ble Toxic: > 100.0S erious Toxic: >200.0 [id number] 20:07:00 Test Item Value Reference Range Interpretation Comments ALCOHOL (test code = ALC) < 10.0 MG/DL <10 VALPROIC ACID (DEPAKENE)2019-07-29 20:01:00 Test Item Value Reference Range Interpretation Comments VALPROIC ACID (DEPAKENE) (test code = MCG/ML 50-100 VALP) [id number] 20:01:00 Test Item Value Reference Range Interpretation Comments ALCOHOL (test code = ALC) < 10.0 MG/DL <10 HIV 12 AB [id number] 17:38:00 Test Item Value Reference Range Interpretation Comments HIV 1 2 COMBO AG/AB SCREEN AB/AG NON REACTIVE NONREACTIVE (test code = [id number]) ARTERIAL BLOOD [id number] 17:24:00 Test Item Value Reference Range Interpretation Comments ARTERIAL BLOOD GAS PH (test code 7.38 mmHg 7.35-7.45 N = PHA) ARTERIAL BLOOD GAS PCO2 (test 40.6 mmHg 35.0-45.0 N code = PCO2A) ARTERIAL BLOOD GAS PO2 (test code 99.9 mmol/L 80.0-100.0 N = PO2A) BICARBONATE TOTAL HCO3 (test code 23.4 mmol/L 20.0-26.0 N = HCO3) BASE EXCESS (test code = ATUL) -1.6 mmol/L -3.0-3.0 N ABG O2 SATURATION (test code = 97.5 % 95.0-100.0 N SATA) ABG DELIVERY (test code = VIKI) RM AIR ABG TEMPERATURE (test code = 37.0 C >37 TEMPA) ABG SITE (test code = SITEA) RR ALLENS TEST (test code = ALLENS) Y CHECK FIO2 (test code = COHBGFFIO2) 21 % DRUGS OF ABUSE SCREEN [id number] 17:07:00 Test Item Value Reference Range Interpretation Comments UR COCAINE (test code = NEGATIVE NEGATIVE Cut off Value: 300 COCAU) ng/mL UR CANNABINOIDS (THC) NEGATIVE NEGATIVE Cut of f Value: 50 (test code = CANU) ng/mL UR AMPHETAMINE (test code NEGATIVE NEGATIVE Cu t off Value: 1000 = AMPHU) ng/mL UR BARBITURATE QUAL (test NEGATIVE NEGATIVE Cu t off Value: 200 code = BARBQLU) ng/mL UR BENZODIAZEPINE (test NEGATIVE NEGATIVE Cut off Value: 200 code = BENZU) ng/mL UR OPIATES QUAL (test code NEGATIVE NEGATIVE C ut off Value: 300 = OPIAQLU) ng/mL UR PHENCYCLIDINE (PCP) NEGATIVE NEGATIVE Cut o ff Value: 25 (test code = PHENCU) ng/mL DRUGS OF ABUSE SCREEN [id number] 17:06:00 Test Item Value Reference Range Interpretation Comments UR COCAINE (test code = NEGATIVE NEGATIVE Cut off Value: 300 COCAU) ng/mL UR CANNABINOIDS (THC) NEGATIVE NEGATIVE Cut of f Value: 50 (test code = CANU) ng/mL UR AMPHETAMINE (test code NEGATIVE NEGATIVE Cu t off Value: 1000 = AMPHU) ng/mL UR BARBITURATE QUAL (test NEGATIVE NEGATIVE Cu t off Value: 200 code = BARBQLU) ng/mL UR BENZODIAZEPINE (test NEGATIVE NEGATIVE Cut off Value: 200 code = BENZU) ng/mL UR OPIATES QUAL (test code NEGATIVE NEGATIVE C ut off Value: 300 = OPIAQLU) ng/mL UR PHENCYCLIDINE (PCP) NEGATIVE (test code = PHENCU) DRUGS OF ABUSE SCREEN [id number] 17:05:00 Test Item Value Reference Range Interpretation Comments UR COCAINE (test code = NEGATIVE COCAU) UR CANNABINOIDS (THC) NEGATIVE NEGATIVE Cut of f Value: 50 (test code = CANU) ng/mL UR AMPHETAMINE (test code NEGATIVE NEGATIVE Cu t off Value: 1000 = AMPHU) ng/mL UR BARBITURATE QUAL (test NEGATIVE NEGATIVE Cu t off Value: 200 code = BARBQLU) ng/mL UR BENZODIAZEPINE (test NEGATIVE NEGATIVE Cut off Value: 200 code = BENZU) ng/mL UR OPIATES QUAL (test code NEGATIVE = OPIAQLU) UR PHENCYCLIDINE (PCP) NEGATIVE (test code = PHENCU) DRUGS OF ABUSE SCREEN [id number] 17:04:00 Test Item Value Reference Range Interpretation Comments UR COCAINE (test code = NEGATIVE COCAU) UR CANNABINOIDS (THC) NEGATIVE (test code = CANU) UR AMPHETAMINE (test code NEGATIVE NEGATIVE Cu t off Value: 1000 = AMPHU) ng/mL UR BARBITURATE QUAL (test NEGATIVE NEGATIVE Cu t off Value: 200 code = BARBQLU) ng/mL UR BENZODIAZEPINE (test NEGATIVE code = BENZU) UR OPIATES QUAL (test code NEGATIVE = OPIAQLU) UR PHENCYCLIDINE (PCP) NEGATIVE (test code = PHENCU) DRUGS OF ABUSE SCREEN [id number] 17:03:00 Test Item Value Reference Range Interpretation Comments UR COCAINE (test code = NEGATIVE COCAU) UR CANNABINOIDS (THC) NEGATIVE (test code = CANU) UR AMPHETAMINE (test code NEGATIVE NEGATIVE Cu t off Value: 1000 = AMPHU) ng/mL UR BARBITURATE QUAL (test NEGATIVE code = BARBQLU) UR BENZODIAZEPINE (test NEGATIVE code = BENZU) UR OPIATES QUAL (test code NEGATIVE = OPIAQLU) UR PHENCYCLIDINE (PCP) NEGATIVE (test code = PHENCU) - CT HEAD/BRAIN W/O [id number] 16:42:00 Patient Name: SARAH BLANKENSHIP Unit No: [id number] EXAMS: CPT CODE: [id number] CT HEAD/BRAIN W/O CONT [id number] INDICATIONS: ams TECHNIQUE: Contiguous axial CT sections were obtained from the skull base to the vertex without intravenous contrast administration. CT DLP dose: 857 mGy centimeters. Iterative dose reduction technique utilized. Location: T18 COMPARISON: None available. FINDINGS: The brain parenchyma is unremarkable. The septum pellucidum and third ventricle are midline. The ventricles are normal in size, shape and position. There is no evidence of acute intracranial hemorrhage, acute infarction, or an intracranial mass lesion. The skull and extracranial soft tissues are grossly within normal limits. IMPRESSION: 1. No evidence of acute intracranial abnormality. 2. Specifically, no evidence of hemorrhage, mass or stroke. at 1642 Reported and signed by: Chapito Mccall MD CC: Aneesh Hamilton MD Technologist: MACK HUANG RT(R) CTDI: DLP: Trnscrpt: 07/29/2019 (5613) [id number] [facility] NAME: SARAH [id number] PHYS: [place] [address] : 03/08/1996 AGE: 23 SEX: M LOC: ANÍBALED 1 PHONE #: [phone] EXAM DATE: 07/29/2019 STATUS: ADM IN FAX #: [phone] RAD #: D/C DT PAGE 1 Signed Report Patient Name: SARAH BLANKENSHIP Unit No: [id number] EXAMS: CPT CODE: [id number] C T HEAD/BRAIN W/O CONT [id number] <Continued> Orig Print D/T: S:07/29/2019 (1645) MARY Barker NAME: SARAH BLANKENSHIP [id number] PHYS: GOPALDelphine[place] [address] : 03/08/1996 AGE: 23 SEX: M LOC: Z.ERMED 1 PHONE #: [phone] EXAM DATE: 07/29/2019 STATUS: ADM IN FAX #: [phone] RAD #: D/C DT PAGE 2 Signed ReportARTERIAL BLOOD [id number] 15:41:00 Test Item Value Reference Range Interpretation Comments ARTERIAL BLOOD GAS PH (test code 7.41 mmHg 7.35-7.45 N = PHA) ARTERIAL BLOOD GAS PCO2 (test 34.5 mmHg 35.0-45.0 L code = PCO2A) ARTERIAL BLOOD GAS PO2 (test 298.2 mmol/L 80.0-100.0 H code = PO2A) BICARBONATE TOTAL HCO3 (test 21.3 mmol/L 20.0-26.0 N code = HCO3) BASE EXCESS (test code = ATUL) -2.6 mmol/L -3.0-3.0 N ABG O2 SATURATION (test code = 99.7 % 95.0-100.0 N SATA) ABG DELIVERY (test code = VIKI) VENT ABG VENT MODE (test code = A/C MODEA) ABG VENT RESP RATE (test code = 18.0 /MIN RRA) ABG TIDAL VOLUME (test code = 400 ml TVA) ABG PEEP (test code = PEEPA) 5.0 cmH2O ABG TEMPERATURE (test code = 37.0 C >37 TEMPA) ABG SITE (test code = SITEA) RR ALLENS TEST (test code = ALLENS) Y CHECK FIO2 (test code = COHBGFFIO2) 60 % CREATINE KINASE (CK)2019-07-29 14:56:00 Test Item Value Reference Range Interpretation Comments CREATINE KINASE (CK) (test code = 44 UNITS/L 55-170 L CK) [id number] 14:56:00 Test Item Value Reference Range Interpretation Comments MAGNESIUM (test code = MAG) 2.1 MG/DL 1.6-2.3 N [id number] 14:56:00 Test Item Value Reference Range Interpretation Comments ACETAMINOPHEN (test code = < 10.0 MCG/ML 10-30 L ACET) [id number] 14:56:00 Test Item Value Reference Range Interpretation Comments SALICYLATE (test code = ANDREW) < 1.0 MG/DL <2.0 VALPROIC ACID (DEPAKENE)2019-07-29 14:56:00 Test Item Value Reference Range Interpretation Comments VALPROIC ACID 83.8 MCG/ML 50-100 N VALPROIC ACID (DEPAKENE) (test code REFERE NCE RANGE: = VALP) mcg/mLMinimal: 50.0Therapeutic : 50.0-120.0Possi ble Toxic: > 100.0S erious Toxic: >200.0 CREATINE KINASE (CK)2019-07-29 14:50:00 Test Item Value Reference Range Interpretation Comments CREATINE KINASE (CK) (test code = 44 UNITS/L 55-170 L CK) [id number] 14:50:00 Test Item Value Reference Range Interpretation Comments MAGNESIUM (test code = MAG) MG/DL 1.6-2.3 [id number] 14:50:00 Test Item Value Reference Range Interpretation Comments ACETAMINOPHEN (test code = ACET) MCG/ML 10-30 [id number] 14:50:00 Test Item Value Reference Range Interpretation Comments SALICYLATE (test code = ANDREW) MG/DL <2.0 VALPROIC ACID (DEPAKENE)2019-07-29 14:50:00 Test Item Value Reference Range Interpretation Comments VALPROIC ACID (DEPAKENE) (test code = MCG/ML 50-100 VALP) CREATINE KINASE (CK)2019-07-29 14:50:00 Test Item Value Reference Range Interpretation Comments CREATINE KINASE (CK) (test code = 44 UNITS/L 55-170 L CK) [id number] 14:50:00 Test Item Value Reference Range Interpretation Comments MAGNESIUM (test code = MAG) 2.1 MG/DL 1.6-2.3 N [id number] 14:50:00 Test Item Value Reference Range Interpretation Comments ACETAMINOPHEN (test code = < 10.0 MCG/ML 10-30 L ACET) [id number] 14:50:00 Test Item Value Reference Range Interpretation Comments SALICYLATE (test code = ANDREW) < 1.0 MG/DL <2.0 VALPROIC ACID (DEPAKENE)2019-07-29 14:50:00 Test Item Value Reference Range Interpretation Comments VALPROIC ACID (DEPAKENE) (test code = MCG/ML 50-100 VALP) LACTIC [id number] 14:39:00 Test Item Value Reference Range Interpretation Comments LACTIC ACID (test code = LACT) 1.2 MMOL/L 0.7-2.1 N [id number] 14:37:00 Test Item Value Reference Range Interpretation Comments AMMONIA (test code = AMM) < 9 mcMOL/L 9-30 L BASIC METABOLIC [id number] 14:21:00 Test Item Value Reference Range Interpretation Comments SODIUM (test code = 141 MMOL/L 137-145 N NA) POTASSIUM (test code = 3.9 MMOL/L 3.5-5.1 N K) CHLORIDE (test code = 107 MMOL/L 98-107 N CL) CARBON DIOXIDE (test 25 MMOL/L 22-30 N code = CO2) ANION GAP (test code = 13 MMOL/L 14-24 L GAP) GLUCOSE (test code = 120 MG/DL 74-106 H GLU) BLOOD UREA NITROGEN 34 MG/DL 9-20 H (test code = BUN) GLOMERULAR FILTRATION 48 Report ing units: RATE (test code = GFR) ml/mi n/1.73 m2 (Modified MDRD Formula)Referen ce Range: > or = 6 0 ml/min/1.73 m2 CREATININE (test code 1.80 MG/DL 0.66-1.25 H = CREAT) CALCIUM (test code = 8.2 MG/DL 8.4-10.2 L CA) HEPATIC FUNCTION [id number] 14:21:00 Test Item Value Reference Range Interpretation Comments TOTAL PROTEIN (test code = PROT) 7.2 G/DL 6.2-7.6 N ALBUMIN (test code = ALB) 3.4 G/DL 3.5-5.0 L BILIRUBIN TOTAL (test code = 0.5 MG/DL 0.2-1.3 N BILT) BILIRUBIN DIRECT (test code = 0.0 MG/DL 0.0-0.3 N BILD) SGOT/AST (test code = AST) 20 UNITS/L 17-59 N SGPT/ALT (test code = ALT) 18 UNITS/L <50 ALKALINE PHOSPHATASE (test code = 109 UNITS/L 38-126 N ALKP) [id number] 14:21:00 Test Item Value Reference Range Interpretation Comments TROPONIN-I (test code = TROPI) < 0.012 NG/ML 0.012-0.033 L BASIC METABOLIC [id number] 14:10:00 Test Item Value Reference Range Interpretation Comments SODIUM (test code = 141 MMOL/L 137-145 N NA) POTASSIUM (test code = 3.9 MMOL/L 3.5-5.1 N K) CHLORIDE (test code = 107 MMOL/L 98-107 N CL) CARBON DIOXIDE (test 25 MMOL/L 22-30 N code = CO2) ANION GAP (test code = 13 MMOL/L 14-24 L GAP) GLUCOSE (test code = 120 MG/DL 74-106 H GLU) BLOOD UREA NITROGEN 34 MG/DL 9-20 H (test code = BUN) GLOMERULAR FILTRATION 48 Report ing units: RATE (test code = GFR) ml/mi n/1.73 m2 (Modified MDRD Formula)Referen ce Range: > or = 6 0 ml/min/1.73 m2 CREATININE (test code 1.80 MG/DL 0.66-1.25 H = CREAT) CALCIUM (test code = MG/DL 8.7-9.7 CA) HEPATIC FUNCTION [id number] 14:10:00 Test Item Value Reference Range Interpretation Comments TOTAL PROTEIN (test code = PROT) 7.2 G/DL 6.2-7.6 N ALBUMIN (test code = ALB) 3.4 G/DL 3.5-5.0 L BILIRUBIN TOTAL (test code = 0.5 MG/DL 0.2-1.3 N BILT) BILIRUBIN DIRECT (test code = 0.0 MG/DL 0.0-0.3 N BILD) SGOT/AST (test code = AST) 20 UNITS/L 17-59 N SGPT/ALT (test code = ALT) UNITS/L <50 ALKALINE PHOSPHATASE (test code = 109 UNITS/L 38-126 N ALKP) [id number] 14:10:00 Test Item Value Reference Range Interpretation Comments TROPONIN-I (test code = TROPI) NG/ML 0.0-0.045 BASIC METABOLIC [id number] 14:10:00 Test Item Value Reference Range Interpretation Comments SODIUM (test code = 141 MMOL/L 137-145 N NA) POTASSIUM (test code = 3.9 MMOL/L 3.5-5.1 N K) CHLORIDE (test code = 107 MMOL/L 98-107 N CL) CARBON DIOXIDE (test 25 MMOL/L 22-30 N code = CO2) ANION GAP (test code = 13 MMOL/L 14-24 L GAP) GLUCOSE (test code = 120 MG/DL 74-106 H GLU) BLOOD UREA NITROGEN 34 MG/DL 9-20 H (test code = BUN) GLOMERULAR FILTRATION 48 Report ing units: RATE (test code = GFR) ml/mi n/1.73 m2 (Modified MDRD Formula)Referen ce Range: > or = 6 0 ml/min/1.73 m2 CREATININE (test code 1.80 MG/DL 0.66-1.25 H = CREAT) CALCIUM (test code = 8.2 MG/DL 8.4-10.2 L CA) HEPATIC FUNCTION [id number] 14:10:00 Test Item Value Reference Range Interpretation Comments TOTAL PROTEIN (test code = PROT) 7.2 G/DL 6.2-7.6 N ALBUMIN (test code = ALB) 3.4 G/DL 3.5-5.0 L BILIRUBIN TOTAL (test code = 0.5 MG/DL 0.2-1.3 N BILT) BILIRUBIN DIRECT (test code = 0.0 MG/DL 0.0-0.3 N BILD) SGOT/AST (test code = AST) 20 UNITS/L 17-59 N SGPT/ALT (test code = ALT) 18 UNITS/L <50 ALKALINE PHOSPHATASE (test code = 109 UNITS/L 38-126 N ALKP) [id number] 14:10:00 Test Item Value Reference Range Interpretation Comments TROPONIN-I (test code = TROPI) NG/ML 0.0-0.045 LACTIC [id number] 14:08:00 Test Item Value Reference Range Interpretation Comments LACTIC ACID (test code = LACT) 2.4 MMOL/L 0.7-2.1 H BASIC METABOLIC [id number] 14:07:00 Test Item Value Reference Range Interpretation Comments SODIUM (test code = NA) 141 MMOL/L 137-145 N POTASSIUM (test code = K) 3.9 MMOL/L 3.5-5.1 N CHLORIDE (test code = CL) 107 MMOL/L 98-107 N CARBON DIOXIDE (test code = CO2) MMOL/L 22-30 GLUCOSE (test code = GLU) MG/DL 74-106 BLOOD UREA NITROGEN (test code = MG/DL 9-20 BUN) GLOMERULAR FILTRATION RATE (test code = GFR) CREATININE (test code = CREAT) MG/DL 0.66-1.25 CALCIUM (test code = CA) MG/DL 8.7-9.7 HEPATIC FUNCTION [id number] 14:07:00 Test Item Value Reference Range Interpretation Comments TOTAL PROTEIN (test code = PROT) G/DL 6.2-7.6 ALBUMIN (test code = ALB) 3.4 G/DL 3.5-5.0 L BILIRUBIN TOTAL (test code = BILT) MG/DL 0.2-1.3 BILIRUBIN DIRECT (test code = BILD) MG/DL 0.0-0.3 SGOT/AST (test code = AST) UNITS/L 15-37 SGPT/ALT (test code = ALT) UNITS/L <50 ALKALINE PHOSPHATASE (test code = UNITS/L 38-126 ALKP) [id number] 14:07:00 Test Item Value Reference Range Interpretation Comments TROPONIN-I (test code = TROPI) NG/ML 0.0-0.045 - XR CHEST [id number] 14:05:00 Patient Name: SARAH BLANKENSHIP Unit No: [id number] EXAMS: CPT CODE: [id number] XR CHEST 1V [id number] Examination: One view chest x-ray Location code: H60 Comparison: None Discussion: Clinical history is remarkable for sepsis. Heart is normal in size. Lungs are clear of consolidating infiltrates. No masses, nodules or effusions identified. Endotracheal tube is identified with its tip 4 cm above the rodríguez. Nasogastric tube is seen with its tip below left hemidiaphragm. Impression: 1. No evidence for acute infiltrates or effusions. 2. Endotracheal tube and nasogastric tube as detailed above. Electronically Signed by Koby Shea 07/29/2019 at 1405 Reported and signed by: Koby Taylor MD CC: Aneesh Hamilton MD Technologist: Toan Corey (RT) (R) Transcrpt Date/Tm/Trnsp: 07/29/2019 (2841) [email or web address] Orig Print D/T: S: 07/29/2019 (5460) [facility] NAME: SARAH BLANKENSHIP [id number] PHYS: [place] [address] : 03/08/1996 AGE: 23 SEX: M LOC: [facility] PHONE #: [phone] EXAM DATE: 07/29/2019 STATUS: REG ER FAX #: [phone] RADIOLOGY NO: PAGE 1 Signed ReportUA RFLX MICR CULT IF [id number] 13:52:00 Test Item Value Reference Range Interpretation Comments UA COLOR (test code = YELLOW YELLOW COLU) UA APPEARANCE (test code very cloudy CLEAR = APPU) UA GLUCOSE DIPSTICK (test NORMAL MG/DL NORMAL code = DGLUU) UA BILIRUBIN DIPSTICK NEGATIVE MG/DL NEGATIVE (test code = BILU) UA KETONE DIPSTICK (test 5 MG/DL NEGATIVE code = KETU) UA SPECIFIC GRAVITY (test 1.020 1.003-1.030 N code = SGU) UA BLOOD DIPSTICK (test 150 Vlad/mm3 NEGATIVE A code = LINK) UA PH DIPSTICK (test code 6.0 5.0-9.0 N = YANELI) UA PROTEIN DIPSTICK (test 100 MG/DL NEGATIVE A code = PROU) UA UROBILINIOGEN DIPSTICK NORMAL MG/DL NORMAL (test code = URO) UA NITRITE DIPSTICK (test POSITIVE NEGATIVE A code = MARTINEZ) UA LEUKOCYTE ESTERASE 500 /mm3 NEGATIVE A DIPSTICK (test code = LEUU) UA CULTURE NEEDED? (test YES,WBC>10 & EPI<25 Culture Chk code = UACULT) Criteria Indication for culture: Delirium-if no other srcUA [id number] 13:52:00 Test Item Value Reference Range Interpretation Comments UA RBC (test code = RBCU) 30-40 RBC/HPF 0-3 A UA WBC (test code = XWBCU) >100 WBC/HPF 0-5 A UA EPITHELIAL CELLS (test code RARE EPI/HPF FEW = EPIU) UA BACTERIA (test code = XBACU) MODERATE NONE A UA MUCUS (test code = MUCU) SLIGHT #/LPF NONE Indication for culture: Delirium-if no other srcPROTHROMBIN [id number] 13:50:00 Test Item Value Reference Range Interpretation Comments PROTHROMBIN TIME 13.8 SECONDS 9.4-12.5 H PATIENT (test code = PTP) INTERNATIONAL NORMAL 1.2 The INR is to be RATIO (test code = used only for INR) monitoring oral anticoagulantth erap y. INDICATION I NR VALUE ---- ---- ---- -------1. Prophylaxis, de ep venous thrombos is, including hig h risk surgery. 2.0 - 3.0 2. Prophylaxis, de ep venous thrombos is, hip surgery, treatment for d eep venous thrombosis or pulmonary prevention of systemic emboli sm in patients wit h valvular heart disease, atrial fibrillation, tissue heart va lve, or acute myocar dial infarction. 2.0 - 3 .0 3. Mechanical prosthesis hear t valves, recurrent syste shanice embolism. 3.0 - 4.5 PTT [id number] 13:50:00 Test Item Value Reference Range Interpretation Comments PTT ACTIVATED (test code = APTT) 30.0 SECONDS 25.1-36.5 N UA RFLX MICR CULT IF [id number] 13:45:00 Test Item Value Reference Range Interpretation Comments UA COLOR (test code = COLU) YELLOW YELLOW UA APPEARANCE (test code = very cloudy CLEAR APPU) UA GLUCOSE DIPSTICK (test code NORMAL MG/DL NORMAL = DGLUU) UA BILIRUBIN DIPSTICK (test NEGATIVE MG/DL NEGATIVE code = BILU) UA KETONE DIPSTICK (test code 5 MG/DL NEGATIVE = KETU) UA SPECIFIC GRAVITY (test code 1.020 1.003-1.030 N = SGU) UA BLOOD DIPSTICK (test code = 150 Vlad/mm3 NEGATIVE A LINK) UA PH DIPSTICK (test code = 6.0 5.0-9.0 N YANELI) UA PROTEIN DIPSTICK (test code 100 MG/DL NEGATIVE A = PROU) UA UROBILINIOGEN DIPSTICK NORMAL MG/DL NORMAL (test code = URO) UA NITRITE DIPSTICK (test code POSITIVE NEGATIVE A = MARTINEZ) UA LEUKOCYTE ESTERASE DIPSTICK 500 /mm3 NEGATIVE A (test code = LEUU) UA CULTURE NEEDED? (test code Criteria Culture Chk = UACULT) Indication for culture: Delirium-if no other srcUA [id number] 13:45:00 Test Item Value Reference Range Interpretation Comments UA RBC (test code = RBCU) RBC/HPF 0-3 UA WBC (test code = XWBCU) WBC/HPF 0-5 UA EPITHELIAL CELLS (test code = EPI/HPF FEW EPIU) UA BACTERIA (test code = XBACU) NONE Indication for culture: Delirium-if no other srcUA RFLX MICR CULT IF [id number] 13:45:00 Test Item Value Reference Range Interpretation Comments UA COLOR (test code = COLU) YELLOW YELLOW UA APPEARANCE (test code = very cloudy CLEAR APPU) UA GLUCOSE DIPSTICK (test code NORMAL MG/DL NORMAL = DGLUU) UA BILIRUBIN DIPSTICK (test NEGATIVE MG/DL NEGATIVE code = BILU) UA KETONE DIPSTICK (test code 5 MG/DL NEGATIVE = KETU) UA SPECIFIC GRAVITY (test code 1.020 1.003-1.030 N = SGU) UA BLOOD DIPSTICK (test code = 150 Vlad/mm3 NEGATIVE A LINK) UA PH DIPSTICK (test code = 6.0 5.0-9.0 N YAENLI) UA PROTEIN DIPSTICK (test code 100 MG/DL NEGATIVE A = PROU) UA UROBILINIOGEN DIPSTICK NORMAL MG/DL NORMAL (test code = URO) UA NITRITE DIPSTICK (test code POSITIVE NEGATIVE A = MARTINEZ) UA LEUKOCYTE ESTERASE DIPSTICK 500 /mm3 NEGATIVE A (test code = LEUU) UA CULTURE NEEDED? (test code Criteria Culture Chk = UACULT) Indication for culture: Delirium-if no other srcUA [id number] 13:45:00 Test Item Value Reference Range Interpretation Comments UA RBC (test code = RBCU) RBC/HPF 0-3 UA WBC (test code = XWBCU) WBC/HPF 0-5 UA EPITHELIAL CELLS (test code = EPI/HPF FEW EPIU) UA BACTERIA (test code = XBACU) NONE Indication for culture: Delirium-if no other srcCBC W/AUTO [id number] 13:39:00 Test Item Value Reference Range Interpretation Comments WHITE BLOOD CELL (test code = 7.0 K/MM3 3.8-9.8 N WBC) RED BLOOD CELL (test code = 3.17 M/MM3 3.95-5.67 L RBC) HEMOGLOBIN (test code = HGB) 10.1 G/DL 12.4-16.7 L HEMATOCRIT (test code = HCT) 31.4 % 35.9-49.5 L MEAN CELL VOLUME (test code = 99 fL 81.7-96.1 H MCV) MEAN CELL HGB (test code = MCH) 31.9 pg 27.6-33.2 N MEAN CELL HGB CONCETRATION 32.2 % 32.9-35.5 L (test code = MCHC) RED CELL DISTRIBUTION WIDTH 13.2 % 12.1-15.2 N (test code = RDW) PLATELET COUNT (test code = 153 K/MM3 129-368 N PLT) MEAN PLATELET VOLUME (test code 11.3 fl 7.4-10.4 H = MPV) NEUTROPHIL % (test code = NT%) 77.6 % 43-75 H IMMATURE GRANULOCYTE % (test 0.3 % 0.0-2.0 N code = IG%) LYMPHOCYTE % (test code = LY%) 13.6 % 14-44 L MONOCYTE % (test code = MO%) 7.8 % 4-13 N EOSINOPHIL % (test code = EO%) 0.4 % 0-6 N BASOPHIL % (test code = BA%) 0.3 % 0-2 N NUCLEATED RBC % (test code = 0.0 % 0-1.0 N NRBC%) NEUTROPHIL # (test code = NT#) 5.46 K/mm3 2.0-7.6 N IMMATURE GRANULOCYTE # (test 0.02 x10 3/uL 0-0.03 N code = IG#) LYMPHOCYTE # (test code = LY#) 0.96 K/mm3 1.0-3.8 L MONOCYTE # (test code = MO#) 0.55 K/mm3 0.1-0.8 N EOSINOPHIL # (test code = EO#) 0.03 K/mm3 0.0-0.2 N BASOPHIL # (test code = BA#) 0.02 K/mm3 0.0-0.2 N NUCLEATED RBC # (test code = 0.00 K/mm3 0.0-0.1 N NRBC#)
[2020-09-05] MEDS ORDERED: NA CHLORIDE 0.9% 2,000 ML ONE (13:14)
--- NOTE | 2020-09-05 13:49 | RAD REPORT ---
EXAM DESCRIPTION: CT - Head Brain Wo Cont - 09/05/2020 1:41 pm CLINICAL HISTORY: CONFUSED COMPARISON: No comparisons TECHNIQUE: Axial 5 mm thick images of the head were obtained without IV contrast. All CT scans are performed using dose optimization technique as appropriate and may include automated exposure control or mA/KV adjustment according to patient size. FINDINGS: No intracranial hemorrhage, mass, edema or shift of mid-line structures. No acute infarcti on changes seen. No abnormal extra-axial fluid collections. Ventricles are normal. Mastoid air cells and middle ears are clear. There is a large amount of cerumen in each external kamila tory canal. There is complete opacification of the right side frontal sinus and anterior aspect right ethmoid air cells. No sclerotic or expansile bone change. Paranasal sinuses are otherwise clear. The re is right deviation of the mid nasal septum and a significant left angulation of the anterior nasal septum and nasal bones which are only partially imaged on this study. There is no history indicating trauma and this is believed to be a baseline configuration for the patient's nose. No globe or orbital content abnormality seen. No acute bony findings. IMPRESSION: No acute intracranial finding identifiable. Right frontal and anterior right ethmoid air cell opacification. Sinuses are otherwise clear. No expa nsile change. Patient has significant left angulation of the nasal bone and anterior nasal septum, both of which ar e only partially imaged on this study. This is presumed to be baseline. No provided history of facial trauma.
--- NOTE | 2020-09-05 14:23 | RAD REPORT ---
EXAM DESCRIPTION: RAD - Chest Single View - 09/05/2020 1:59 pm CLINICAL HISTORY: COUGH COMPARISON: None TECHNIQUE: AP portable chest image was obtained 09/05/2020 1:59 pm . FINDINGS: Lungs are clear. Heart and vasculature are normal. No measurable pleural effusion and no p neumothorax. No acute bony abnormality seen. No acute aortic findings suspected. IMPRESSION: No acute cardiopulmonary process.
[2020-09-05 14:59] LABS: Absolute Lymphocytes (CBC) 1.4 K/uL (0.7-4.9); Basophils % 0.6 % (0-1.3); Hematocrit 42.5 % (39.6-49.0); Lymphocytes % 13.5 % (15.3-44.8); MPV 9.6 fL (7.6-11.3); RBC Red Blood Cell Count 5.07 M/uL (4.33-5.43)
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
--- NOTE | 2020-09-05 15:05 | EDPHYS ---
Physician Documentation [facility] Name: Sheldon Silverman Age: 44 yrs Sex: Male : 1975 Arrival Date: 09/05/2020 Time: 12:45 Bed 23 Private MD: ED Physician Carlton Garcia HPI: 09/05 14:54 This 44 yrs old Male presents to ER via EMS with complaints of ams, george dehydrated and fb ingestion. 14:54 This 44 yrs old Male presents to ER via EMS with unknown complaint. george 14:54 The patient presents with abdominal pain. Onset: The symptoms/episode began/occurred george this morning, today. homeless, walking and ams, told he ingested sever pens the other day. Onset: The symptoms/episode began/occurred 2 day(s) ago. The symptoms do not radiate. Associated signs and symptoms: none. The symptoms are described as constant, crampy. Modifying factors: The symptoms are alleviated by nothing, the symptoms are aggravated by nothing. Severity of pain: At its worst the pain was mild in the emergency department the pain is unchanged. Severity of symptoms: At their worst the symptoms were mild in the emergency department the symptoms have improved mildly. Historical: - Allergies: 13:00 No Known Allergies; ld1 - PMHx: 13:00 Unable to Obtain; ld1 - PSHx: 13:00 Unable to Obtain; ld1 - Immunization history:: Adult Immunizations not up to date. - Social history:: Smoking status: unknown. - Family history:: not pertinent. ROS: 14:54 Constitutional: Negative for fever, chills, and weight loss, Eyes: Negative for injury, george pain, redness, and discharge, ENT: Negative for injury, pain, and discharge, Neck: Negative for injury, pain, and swelling, Cardiovascular: Negative for chest pain, palpitations, and edema, Respiratory: Negative for shortness of breath, cough, wheezing, and pleuritic chest pain, Back: Negative for injury and pain, : Negative for injury, bleeding, discharge, and swelling, MS/Extremity: Negative for injury and deformity, Skin: Negative for injury, rash, and discoloration, Neuro: Negative for headache, weakness, numbness, tingling, and seizure, Psych: Negative for depression, anxiety, suicide ideation, homicidal ideation, and hallucinations, Allergy/Immunology: Negative for hives, rash, and allergies, Endocrine: Negative for neck swelling, polydipsia, polyuria, polyphagia, and marked weight changes, Hematologic/Lymphatic: Negative for swollen nodes, abnormal bleeding, and unusual bruising. 14:54 Abdomen/GI: Positive for abdominal pain, of the epigastric area, right upper quadrant and left upper quadrant. Exam: 14:54 Constitutional: This is a well developed, well nourished patient who is awake, alert, george and in no acute distress. Head/Face: Normocephalic, atraumatic. Eyes: Pupils equal round and reactive to light, extra-ocular motions intact. Lids and lashes normal. Conjunctiva and sclera are non-icteric and not injected. Cornea within normal limits. Periorbital areas with no swelling, redness, or edema. ENT: Nares patent. No nasal discharge, no septal abnormalities noted. Tympanic membranes are normal and external auditory canals are clear. Oropharynx with no redness, swelling, or masses, exudates, or evidence of obstruction, uvula midline. Mucous membranes moist. Neck: Trachea midline, no thyromegaly or masses palpated, and no cervical lymphadenopathy. Supple, full range of motion without nuchal rigidity, or vertebral point tenderness. No Meningismus. Chest/axilla: Normal chest wall appearance and motion. Nontender with no deformity. No lesions are appreciated. Cardiovascular: Regular rate and rhythm with a normal S1 and S2. No gallops, murmurs, or rubs. Normal PMI, no JVD. No pulse deficits. Respiratory: Lungs have equal breath sounds bilaterally, clear to auscultation and percussion. No rales, rhonchi or wheezes noted. No increased work of breathing, no retractions or nasal flaring. Back: No spinal tenderness. No costovertebral tenderness. Full range of motion. Male : Normal genitalia with no discharge or lesions. Skin: Warm, dry with normal turgor. Normal color with no rashes, no lesions, and no evidence of cellulitis. MS/ Extremity: Pulses equal, no cyanosis. Neurovascular intact. Full, normal range of motion. Neuro: Awake and alert, GCS 15, oriented to person, place, time, and situation. Cranial nerves II-XII grossly intact. Motor strength 5/5 in all extremities. Sensory grossly intact. Cerebellar exam normal. Normal gait. Psych: Awake, alert, with orientation to person, place and time. Behavior, mood, and affect are within normal limits. 14:54 Abdomen/GI: Inspection: abdomen appears normal, Bowel sounds: normal, Palpation: mild abdominal tenderness, in the epigastric area and left upper quadrant, Liver: no appreciated palpable abnormalities, Hernia: not appreciated. 15:07 ECG was reviewed by the Attending Physician. [facility] Vital Signs: 12:58 BP 106 / 74; Pulse 89; Resp 18; Temp 98.5(O); Pulse Ox 100% on R/A; Weight 58.97 kg; ld1 Height 5 ft. 10 in. (177.80 cm); Pain 0/10; 13:00 BP 106 / 74; Pulse 81; Resp 18; Pulse Ox 100% ; ld1 14:30 BP 106 / 81; Pulse 67; Resp 18; Pulse Ox 100% ; ld1 15:45 BP 108 / 66; Pulse 68; Resp 18; Pulse Ox 99% on R/A; ld1 16:50 BP 110 / 72; Pulse 69; Resp 18; Pulse Ox 100% on R/A; ld1 17:37 BP 109 / 70; Pulse 66; Resp 18; Pulse Ox 99% on R/A; ld1 12:58 Body Mass Index 18.65 (58.97 kg, 177.80 cm) ld1 Procedures: 15:15 Peripheral line: by aseptic technique a peripheral line was placed in the right [facility] external jugular vein. MDM: 12:45 Patient medically screened. [facility] 15:05 Differential Diagnosis altered mental status. Differential diagnosis: gastritis, george gastroesophageal reflux disease, myocardia ischemia or infarction, non-specific abd pain, pancreatitis, Peptic Ulcer Disease, Pyelonephritis, urinary tract infection. Data reviewed: vital signs, nurses notes, lab test result(s), EKG, radiologic studies, CT scan, plain films. Data interpreted: monitoring specialist: rate is 89 beats/min, rhythm is regular, Pulse oximetry: on room air is 100 %. Test interpretation: by ED physician or midlevel provider: ECG, plain radiologic studies. Counseling: I had a detailed discussion with the patient and/or guardian regarding: the historical points, exam findings, and any diagnostic results supporting the discharge/admit diagnosis, lab results, radiology results, the need to transfer to another facility, for higher level of care, [facility] the required specialist. 09/05 12:46 Order name: Basic Metabolic Panel [facility] 09/05 12:46 Order name: CBC with Diff [facility] 09/05 12:46 Order name: LFT's; Complete Time: 15:28 [facility] 09/05 12:46 Order name: Magnesium; Complete Time: 15:28 [facility] 09/05 12:46 Order name: NT PRO-BNP; Complete Time: 15:28 [facility] 09/05 12:46 Order name: PT-INR; Complete Time: 15:23 [facility] 09/05 12:46 Order name: Troponin (emerg Dept Use Only); Complete Time: 15:28 [facility] 09/05 12:46 Order name: Lipase; Complete Time: 15:28 [facility] 09/05 12:46 Order name: UDS; Complete Time: 15:23 [facility] 09/05 12:47 Order name: Basic Metabolic Panel; Complete Time: 15:28 EDVT 09/05 12:47 Order name: CBC with Automated Diff; Complete Time: 15:23 EDVT 09/05 14:47 Order name: Acetaminophen; Complete Time: 15:28 [facility] 09/05 14:47 Order name: ETOH Level; Complete Time: 15:24 [facility] 09/05 12:46 Order name: XRAY Chest (1 view); Complete Time: 14:32 [facility] 09/05 12:46 Order name: EKG; Complete Time: 12:47 [facility] 09/05 12:46 Order name: CT Head Brain wo Cont; Complete Time: 14:32 [facility] 09/05 12:46 Order name: CT Stone Protocol [facility] 09/05 14:47 Order name: Salicylate; Complete Time: 15:24 [facility] 09/05 14:54 Order name: UA; Complete Time: 15:36 09/05 15:03 Order name: PTT, Activated Partial Thromb; Complete Time: 15:23 EDMS 09/05 15:15 Order name: Urine Microscopic Only; Complete Time: 15:36 EDVT 09/05 15:33 Order name: Urine Culture [facility] 09/05 16:36 Order name: SARS-COV-2 RT PCR; Complete Time: 16:51 EDMS 09/05 12:46 Order name: Cardiac monitoring; Complete Time: 12:51 [facility] 09/05 12:46 Order name: EKG - Nurse/Tech; Complete Time: 16:53 [facility] 09/05 12:46 Order name: IV Saline Lock; Complete Time: 12:51 [facility] 09/05 12:46 Order name: Labs collected and sent; Complete Time: 14:49 [facility] 09/05 12:46 Order name: O2 Per Protocol; Complete Time: 12:52 [facility] 09/05 12:46 Order name: O2 Sat Monitoring; Complete Time: 12:52 [facility] 09/05 12:46 Order name: Urine Dipstick-Ancillary (obtain specimen); Complete Time: 14:48 [facility] 09/05 13:15 Order name: PO challenge: GATORADE PLEASE; Complete Time: 14:48 [facility] 09/05 14:54 Order name: NPO; Complete Time: 15:02 [facility] 09/05 16:06 Order name: Bladder Scanner: NOTE PVR; Complete Time: 17:01 [facility] EC:07 Rate is 79 beats/min. Rhythm is regular. QRS [place] is Normal. MI interval is normal. QRS george interval is normal. QT interval is prolonged at 432 msec. No Q waves. T waves are Normal. No ST changes noted. Clinical impression: NSR w/ Non-specific ST/T Changes and No evidence of ischemia. Interpreted by me. Reviewed by me. Administered Medications: 12:57 Drug: NS 0.9% 1000 ml Route: IV; Rate: 1 bolus; Site: right forearm; ld1 16:53 Follow up: Response: No adverse reaction; IV Status: Completed infusion ld1 12:57 Drug: NS 0.9% 1000 ml Route: IV; Rate: 1 bolus; Site: right forearm; ld1 16:53 Follow up: Response: No adverse reaction; IV Status: Completed infusion ld1 15:48 Drug: Potassium Chloride 20 mEq Route: IV; Rate: per protocol; Site: right forearm; ld1 16:53 Follow up: Response: No adverse reaction; IV Status: Completed infusion ld1 16:23 Drug: NS 0.9% 1000 ml Route: IV; Rate: 125 ml/hr; Site: right forearm; ld1 16:53 Drug: Zosyn (piperacillin-tazobactam) 3.375 grams Route: IVPB; Infused Over: 60 mins; ld1 Site: right jugular; Disposition Summary: 09/05/20 15:04 [facility]: Higher level of care george Condition: Fair george Problem: new george Symptoms: have improved george Accepting Physician: to [facility](09/05/20 17:47) ld1 Diagnosis - Foreign body in stomach george - Polycystic kidney, unspecified george - Dehydration george - Altered mental status, unspecified george - UTI/ Urinary tract infection, site not specified george - Acute kidney failure, unspecified george - Hypokalemia george Forms: - Medication Reconciliation Form george - SBAR form george Signatures: Dispatcher [employer] EDMS Carlton Garcia MD MD cha Dibbern, Lauren, RN RN ld1 Corrections: (The following items were deleted from the chart) 14:48 14:47 Suicide Screening ([place]) ordered. [facility] ld1 15:03 14:48 PTT, ACTIVATED+COAG.LAB.BRZ ordered. EDMS EDMS 15:24 15:04 to [facility] george george 15:36 15:24 to [facility] george 15:37 15:36 to [facility] george 15:41 14:57 CORONAVIRUS+MR.LAB.BRZ ordered. EDMS EDMS 16:08 15:30 [place] ordered. [facility] ld1 17:47 15:37 to [facility] ld1
[2020-09-05 15:07] LABS: Urine Appearance TURBID (Clear); Urine Blood 3+ (Negative); Urine Color DK YELLOW (Yellow); Urine Glucose NEGATIVE (Negative); Urine Protein 3+ (Negative); Urine Specific Gravity 1.015 (1.005-1.030); Urine pH 5.5 (5.0-7.0)
[2020-09-05 15:08] LABS: Protime INR 1.1
[2020-09-05 15:12] LABS: Barbiturates NEGATIVE (NEGATIVE); Benzodiazepines NEGATIVE (NEGATIVE); Cocaine NEGATIVE (NEGATIVE); METHAMPHETAM NEGATIVE (NEGATIVE); Methadone NEGATIVE (NEGATIVE); Opiates NEGATIVE (NEGATIVE); Phencyclidine NEGATIVE (NEGATIVE); THC Cannibis POSITIVE (NEGATIVE)
[2020-09-05 15:13] LABS: Urine Bilirubin 1+ (Negative)
[2020-09-05 15:14] LABS: Urine Microscopic Reflex ORDER UMIC
[2020-09-05 15:25] LABS: ALT/SGPT 25 U/L (12-78); AST/SGOT 28 U/L (15-37); Albumin 3.5 g/dL (3.4-5.0); Alkaline Phosphatase 66 U/L (45-117); BUN Blood Urea Nitrogen 74 mg/dL (7-18); Bicarbonate 27 mmol/L (21-32); Bilirubin Direct 0.2 mg/dL (0-0.2); Bilirubin Total 0.6 mg/dL (0.2-1.0); Glucose Level 118 mg/dL (74-106); Lipase 87 U/L (73-393); Magnesium 2.6 mg/dL (1.8-2.4); NT PRO-BNP 396 pg/mL (<125); Protein, Total 8.6 g/dL (6.4-8.2); Sodium Level 132 mmol/L (136-145); Troponin (Emerg Dept Use Only) < 0.02 ng/mL (0.0-0.045)
[2020-09-05 15:27] LABS: Potassium 2.8 mmol/L (3.5-5.1)
[2020-09-05 15:31] LABS: Urine Bacteria 20-50 /HPF (NONE SEEN); Urine Mucus 2+ /HPF (NONE SEEN)
[2020-09-05] MEDS ORDERED: KCL 20 MEQ/100 mL IVPB 20 MEQ/100 ML BAG IV ONE (15:59)
[2020-09-05] MEDS ORDERED: NA CHLORIDE 0.9% 1,000 ML ONE (16:07)
[2020-09-05] MEDS ORDERED: LIDOCAINE VISCOUS 2% SOLN 15 ML UDC ONE (16:07)
[2020-09-05] MEDS ORDERED: PIPERACIL/TAZO 2.25 GM VIAL IV ONE (16:48)
[2020-09-05] MEDS ORDERED: NA CHLORIDE 0.9% 100 ML ONE (16:48)
[2020-09-05 17:55] VITALS: TEMP 98.5
[2020-09-05 18:05] VITALS: BP 109/70; O2SAT 99
--- NOTE | 2020-09-06 06:19 | EKG ---
Test Date: 2020-09-05 Test Time: 14:57:53 Residential Director: NAYELI MEASUREMENT RESULTS: Intervals: Rate: 79 [place]: 100 QRSD: 92 QT: 432 QTc: 495 [place]: P: 86 IL: 100 QRS: 84 T: 59 INTERPRETIVE STATEMENTS: Sinus rhythm with short [place] Junctional ST depression, probably normal Prolonged QT Abnormal ECG No previous ECG available for comparison Electronically Signed On 09-06-20 06:17:48 CDT by Eugenio Trejo
--- NOTE | 2020-09-06 10:39 | RAD REPORT ---
EXAM DESCRIPTION: CT - Stone Protocol - 09/05/2020 1:40 pm CLINICAL HISTORY: ABD PAIN COMPARISON: No comparisons TECHNIQUE: Axial 3 mm thick images were obtained without oral or IV contrast. The [id number] span s the entirety of the system including uppermost abdomen and lung bases. All CT scans are performed using dose optimization technique as appropriate and may include automated exposure control or mA/KV adjustment according to patient size. FINDINGS: The patient has very severe polycystic kidney disease. There are innumerable variably size d cysts filling and enlarging both kidneys and the retroperitoneal space. This has mass effect extrin sically compressing the abdominal contents. Within both kidneys are multiple small cysts that show ho mogeneous hyperdensity. These are believed to be cysts as well with increased attenuation due to old blood or high protein content. Little identifiable normal renal parenchyma seen. There are scattered calcifications in both kidneys but no obstructing calculus seen. Hydronephrosis is not identified. A worrisome renal mass is not seen; however, underlying polycystic pattern can obscure masses until the y are large in size. Pyelonephritis cannot be excluded. No significant adrenal finding. Urinary bladd er is almost fully contracted which limits assessment. No bladder calculi seen. Imaged portions of the liver, spleen and pancreas show no suspicious findings on non-contrast imaging . No gallbladder or biliary tree abnormality identified. There is 11 cm long by 7 cm diameter tubular device or foreign body in the lumen of the stomach. Ther e is no history provided to indicate with this device might represent. Moderate stool volume is prese nt. No dilated large or small bowel. Small mesenteric lymph nodes are identified. No hernia, mass or bulky lymphadenopathy noted. No free air, free fluid or inflammatory stranding. No significant bony abnormality. IMPRESSION: 1. Severe polycystic kidney disease enlarging both kidneys and enlarging the retroperito sophie space. This causes extrinsic compression on the peritoneal structures. 2. Both kidneys show old hemorrhagic or high protein content cysts in addition to the benign cysts. N o evidence for a large solid renal mass. 3. No hydronephrosis or obstructing calculus is seen. 4. Isodense masses and pyelonephritis are not excluded on stone protocol technique. 5. No abnormality of the solid abdominal viscera. No acute or emergent bowel finding.
== END 2020-09-05 17:47 | disposition short-term general hospital (02) ==
LOC: ER 12:44
PROC: 05HP33Z Insertion of Infusion Device into Right External Jugular Vein, Percutaneous Approach (ICD-10-PCS; principal; 2020-09-05)
DX: E86.0 Dehydration (principal); N39.0 Urinary tract infection, site not specified; N17.9 Acute kidney failure, unspecified; Q61.3 Polycystic kidney, unspecified; E87.6 Hypokalemia; T18.2XXA Foreign body in stomach, initial encounter; Z20.822 Contact with and (suspected) exposure to COVID-19
CPT/HCPCS: 36415; 70450; 71045; 74176; 76377; 80048; 80076; 80307; 80320; 80329; 81003; 81015; 83690; 83735; 83880; 84484; 85025; 85610; 85730; 87077; 87086; 87088; 87186; 93005; 96361; 96365; 96375; 99284; J2543; J3480; J7030; U0003

== ENCOUNTER 2020-10-30 21:10 | Inpatient (IN) | payer SELFPAY ==
--- OUTSIDE RECORDS SUMMARY | 2020-10-30 21:13 | XMS REPORT | Continuity of Care Document ---
:1975 Author Organization [facility] t Address [address] [place] [address] Care Team Providers Name Role Phone Unavailable [...] code 119 UNITS/L 38-126 N = ALKP) [id number] 06:22:00 Test Item Value Reference Range Interpretation Comments MAGNESIUM (test code = MAG) 2.1 MG/DL 1.6-2.3 N COMPREHENSIVE METABOLIC [id number] 06:21:00 Test Item Value Reference Range Interpretation [...] UNITS/L 38-126 N (test code = ALKP) [id number] 06:21:00 Test Item Value Reference Range Interpretation Comments MAGNESIUM (test code = MAG) MG/DL 1.6-2.3 COMPREHENSIVE METABOLIC [id number] 06:19:00 Test Item Value Reference Range Interpretation [...] PHOSPHATASE (test code = UNITS/L 38-126 ALKP) [id number] 06:19:00 Test Item Value Reference Range Interpretation Comments MAGNESIUM (test code = MAG) MG/DL 1.6-2.3 COMPREHENSIVE METABOLIC [id number] 06:18:00 Test Item Value Reference Range Interpretation [...] PHOSPHATASE (test code = UNITS/L 38-126 ALKP) [id number] 06:18:00 Test Item Value Reference Range Interpretation Comments MAGNESIUM (test code = MAG) MG/DL 1.6-2.3 CBC W/AUTO [id number] 06:07:00 Test Item Value Reference Range Interpretation [...] code = 0.00 K/mm3 0.0-0.1 N NRBC#) [id number] 13:06:00 Test Item Value Reference Range Interpretation Comments VANCOMYCIN (test code = VANCO) 21.6 mcg/ML 5.0-26.0 N COMPREHENSIVE METABOLIC [id number] 06:00:00 Test Item Value Reference Range Interpretation [...] UNITS/L 38-126 H (test code = ALKP) [id number] 06:00:00 Test Item Value Reference Range Interpretation Comments MAGNESIUM (test code = MAG) 1.9 MG/DL 1.6-2.3 N COMPREHENSIVE METABOLIC [id number] 05:56:00 Test Item Value Reference Range Interpretation [...] PHOSPHATASE UNITS/L 38-126 (test code = ALKP) [id number] 05:56:00 Test Item Value Reference Range Interpretation Comments MAGNESIUM (test code = MAG) MG/DL 1.6-2.3 COMPREHENSIVE METABOLIC [id number] 05:54:00 Test Item Value Reference Range Interpretation [...] PHOSPHATASE (test code = UNITS/L 38-126 ALKP) [id number] 05:54:00 Test Item Value Reference Range Interpretation Comments MAGNESIUM (test code = MAG) MG/DL 1.6-2.3 COMPREHENSIVE METABOLIC [id number] 05:53:00 Test Item Value Reference Range Interpretation [...] PHOSPHATASE (test code = UNITS/L 38-126 ALKP) [id number] 05:53:00 Test Item Value Reference Range Interpretation Comments MAGNESIUM (test code = MAG) MG/DL 1.6-2.3 CBC W/AUTO [id number] 05:40:00 Test Item Value Reference Range Interpretation [...] ble Toxic: > 100.0S erious Toxic: >200.0 [id number] 20:07:00 Test Item Value Reference Range Interpretation Comments ALCOHOL (test code = ALC) < 10.0 MG/DL <10 VALPROIC ACID (DEPAKENE)2019-07-29 20:01:00 Test Item Value Reference Range Interpretation Comments VALPROIC ACID (DEPAKENE) (test code = MCG/ML 50-100 VALP) [id number] 20:01:00 Test Item Value Reference Range Interpretation Comments ALCOHOL (test code = ALC) < 10.0 MG/DL <10 HIV 12 AB [id number] 17:38:00 Test Item Value Reference Range Interpretation Comments HIV 1 2 COMBO AG/AB SCREEN AB/AG NON REACTIVE NONREACTIVE (test code = [id number]) ARTERIAL BLOOD [id number] 17:24:00 Test Item Value Reference Range Interpretation [...] COHBGFFIO2) 21 % DRUGS OF ABUSE SCREEN [id number] 17:07:00 Test Item Value Reference Range Interpretation [...] = PHENCU) ng/mL DRUGS OF ABUSE SCREEN [id number] 17:06:00 Test Item Value Reference Range Interpretation [...] code = PHENCU) DRUGS OF ABUSE SCREEN [id number] 17:05:00 Test Item Value Reference Range Interpretation [...] code = PHENCU) DRUGS OF ABUSE SCREEN [id number] 17:04:00 Test Item Value Reference Range Interpretation [...] code = PHENCU) DRUGS OF ABUSE SCREEN [id number] 17:03:00 Test Item Value Reference Range Interpretation [...] code = PHENCU) - CT HEAD/BRAIN W/O [id number] 16:42:00 Patient Name: SARAH BLANKENSHIP Unit No: [id number] EXAMS: CPT CODE: [id number] CT HEAD/BRAIN W/O CONT 14701 INDICATIONS: ams TECHNIQUE: Contiguous axial CT sections [...] MACK HUANG RT(R) CTDI: DLP: Trnscrpt: 07/29/2019 (4592) t.SDR.NB16 [facility] NAME: SARAH BLANKENSHIP[address] PHYS: [place] [address] : 03/08/1996 AGE: 23 SEX: M LOC: ANÍBALED 1 PHONE #: [phone] EXAM DATE: 07/29/2019 STATUS: ADM IN FAX #: [phone] RAD #: D/C DT PAGE 1 Signed Report Patient Name: SARAH BLANKENSHIP Unit No: [id number] EXAMS: CPT CODE: [id number] C T HEAD/BRAIN W/O CONT 91163 <Continued> Orig Print D/T: S:07/29/2019 (1645) MARY Barker NAME: SARAH BLANKENSHIP [id number] PHYS: GOPALDelphineAneesh [place] [address] : 03/08/1996 AGE: 23 SEX: M LOC: Z.ERMED 1 PHONE #: [phone] EXAM DATE: 07/29/2019 STATUS: ADM IN FAX #: [phone] RAD #: D/C DT PAGE 2 Signed ReportARTERIAL BLOOD [id number] 15:41:00 Test Item Value Reference Range Interpretation [...] code = 44 UNITS/L 55-170 L CK) [id number] 14:56:00 Test Item Value Reference Range Interpretation Comments MAGNESIUM (test code = MAG) 2.1 MG/DL 1.6-2.3 N [id number] 14:56:00 Test Item Value Reference Range Interpretation Comments ACETAMINOPHEN (test code = < 10.0 MCG/ML 10-30 L ACET) [id number] 14:56:00 Test Item Value Reference Range Interpretation [...] code = 44 UNITS/L 55-170 L CK) [id number] 14:50:00 Test Item Value Reference Range Interpretation Comments MAGNESIUM (test code = MAG) MG/DL 1.6-2.3 [id number] 14:50:00 Test Item Value Reference Range Interpretation Comments ACETAMINOPHEN (test code = ACET) MCG/ML 10-30 [id number] 14:50:00 Test Item Value Reference Range Interpretation Comments SALICYLATE (test code = ANDREW) MG/DL <2.0 VALPROIC ACID (DEPAKENE)2019-07-29 14:50:00 Test Item Value Reference Range Interpretation Comments VALPROIC ACID (DEPAKENE) (test code = MCG/ML 50-100 VALP) CREATINE KINASE (CK)2019-07-29 14:50:00 Test Item Value Reference Range Interpretation Comments CREATINE KINASE (CK) (test code = 44 UNITS/L 55-170 L CK) [id number] 14:50:00 Test Item Value Reference Range Interpretation Comments MAGNESIUM (test code = MAG) 2.1 MG/DL 1.6-2.3 N [id number] 14:50:00 Test Item Value Reference Range Interpretation Comments ACETAMINOPHEN (test code = < 10.0 MCG/ML 10-30 L ACET) [id number] 14:50:00 Test Item Value Reference Range Interpretation Comments SALICYLATE (test code = ANDREW) < 1.0 MG/DL <2.0 VALPROIC ACID (DEPAKENE)2019-07-29 14:50:00 Test Item Value Reference Range Interpretation Comments VALPROIC ACID (DEPAKENE) (test code = MCG/ML 50-100 VALP) LACTIC [id number] 14:39:00 Test Item Value Reference Range Interpretation Comments LACTIC ACID (test code = LACT) 1.2 MMOL/L 0.7-2.1 N [id number] 14:37:00 Test Item Value Reference Range Interpretation Comments AMMONIA (test code = AMM) < 9 mcMOL/L 9-30 L BASIC METABOLIC [id number] 14:21:00 Test Item Value Reference Range Interpretation [...] 8.2 MG/DL 8.4-10.2 L CA) HEPATIC FUNCTION [id number] 14:21:00 Test Item Value Reference Range Interpretation [...] code = 109 UNITS/L 38-126 N ALKP) [id number] 14:21:00 Test Item Value Reference Range Interpretation Comments TROPONIN-I (test code = TROPI) < 0.012 NG/ML 0.012-0.033 L BASIC METABOLIC [id number] 14:10:00 Test Item Value Reference Range Interpretation [...] code = MG/DL 8.7-9.7 CA) HEPATIC FUNCTION [id number] 14:10:00 Test Item Value Reference Range Interpretation [...] code = 109 UNITS/L 38-126 N ALKP) [id number] 14:10:00 Test Item Value Reference Range Interpretation Comments TROPONIN-I (test code = TROPI) NG/ML 0.0-0.045 BASIC METABOLIC [id number] 14:10:00 Test Item Value Reference Range Interpretation [...] 8.2 MG/DL 8.4-10.2 L CA) HEPATIC FUNCTION [id number] 14:10:00 Test Item Value Reference Range Interpretation [...] code = 109 UNITS/L 38-126 N ALKP) [id number] 14:10:00 Test Item Value Reference Range Interpretation Comments TROPONIN-I (test code = TROPI) NG/ML 0.0-0.045 LACTIC [id number] 14:08:00 Test Item Value Reference Range Interpretation Comments LACTIC ACID (test code = LACT) 2.4 MMOL/L 0.7-2.1 H BASIC METABOLIC [id number] 14:07:00 Test Item Value Reference Range Interpretation [...] code = CA) MG/DL 8.7-9.7 HEPATIC FUNCTION [id number] 14:07:00 Test Item Value Reference Range Interpretation Comments TOTAL PROTEIN (test code = PROT) G/DL 6.2-7.6 ALBUMIN (test code = ALB) 3.4 G/DL 3.5-5.0 L BILIRUBIN TOTAL (test code = BILT) MG/DL 0.2-1.3 BILIRUBIN DIRECT (test code = BILD) MG/DL 0.0-0.3 SGOT/AST (test code = AST) UNITS/L 15-37 SGPT/ALT (test code = ALT) UNITS/L <50 ALKALINE PHOSPHATASE (test code = UNITS/L 38-126 ALKP) [id number] 14:07:00 Test Item Value Reference Range Interpretation Comments TROPONIN-I (test code = TROPI) NG/ML 0.0-0.045 - XR CHEST [id number] 14:05:00 Patient Name: SARAH BLANKENSHIP Unit No: [id number] EXAMS: CPT CODE: [id number] XR CHEST 1V 75901 Examination: One view chest x-ray Location code: [...] Toan Corey (RT) (R) Transcrpt Date/Tm/Trnsp: 07/29/2019 (6810) t.[email or web address] Orig Print D/T: S: 07/29/2019 (7709) [facility] NAME: SARAH BLANKENSHIP [id number] PHYS: [place] [address] : 03/08/1996 AGE: 23 SEX: M LOC: Z.ERS PHONE #: [phone] EXAM DATE: 07/29/2019 STATUS: REG ER FAX #: [phone] RADIOLOGY NO: PAGE 1 Signed ReportUA RFLX MICR CULT IF [id number] 13:52:00 Test Item Value Reference Range Interpretation [...] Indication for culture: Delirium-if no other srcUA [id number] 13:52:00 Test Item Value Reference Range Interpretation Comments UA RBC (test code = RBCU) 30-40 RBC/HPF 0-3 A UA WBC (test code = XWBCU) >100 WBC/HPF 0-5 A UA EPITHELIAL CELLS (test code RARE EPI/HPF FEW = EPIU) UA BACTERIA (test code = XBACU) MODERATE NONE A UA MUCUS (test code = MUCU) SLIGHT #/LPF NONE Indication for culture: Delirium-if no other srcPROTHROMBIN [id number] 13:50:00 Test Item Value Reference Range Interpretation [...] syste shanice embolism. 3.0 - 4.5 PTT [id number] 13:50:00 Test Item Value Reference Range Interpretation Comments PTT ACTIVATED (test code = APTT) 30.0 SECONDS 25.1-36.5 N UA RFLX MICR CULT IF [id number] 13:45:00 Test Item Value Reference Range Interpretation [...] Indication for culture: Delirium-if no other srcUA [id number] 13:45:00 Test Item Value Reference Range Interpretation Comments UA RBC (test code = RBCU) RBC/HPF 0-3 UA WBC (test code = XWBCU) WBC/HPF 0-5 UA EPITHELIAL CELLS (test code = EPI/HPF FEW EPIU) UA BACTERIA (test code = XBACU) NONE Indication for culture: Delirium-if no other srcUA RFLX MICR CULT IF [id number] 13:45:00 Test Item Value Reference Range Interpretation [...] Indication for culture: Delirium-if no other srcUA [id number] 13:45:00 Test Item Value Reference Range Interpretation Comments UA RBC (test code = RBCU) RBC/HPF 0-3 UA WBC (test code = XWBCU) WBC/HPF 0-5 UA EPITHELIAL CELLS (test code = EPI/HPF FEW EPIU) UA BACTERIA (test code = XBACU) NONE Indication for culture: Delirium-if no other srcCBC W/AUTO [id number] 13:39:00 Test Item Value Reference Range Interpretation [...]
[2020-10-30 21:40] LABS: Absolute Lymphocytes (CBC) 1.5 K/uL (0.7-4.9); Basophils % 0.9 % (0-1.3); Hematocrit 42.4 % (39.6-49.0); Lymphocytes % 14.6 % (15.3-44.8); MPV 8.5 fL (7.6-11.3); RBC Red Blood Cell Count 5.12 M/uL (4.33-5.43)
[2020-10-30 21:47] LABS: Protime INR 1.14
[2020-10-30] MEDS ORDERED: NA CHLORIDE 0.9% 1,000 ML ONE (22:08)
[2020-10-30 22:38] LABS: ALT/SGPT 24 U/L (12-78); AST/SGOT 28 U/L (15-37); Albumin 3.7 g/dL (3.4-5.0); Alkaline Phosphatase 88 U/L (45-117); BUN Blood Urea Nitrogen 101 mg/dL (7-18); Bicarbonate 36 mmol/L (21-32); Bilirubin Direct 0.2 mg/dL (0-0.2); Bilirubin Total 0.7 mg/dL (0.2-1.0); Creatine Phosphokinase 583 U/L (39-308); Glucose Level 106 mg/dL (74-106); Protein, Total 9.8 g/dL (6.4-8.2); Sodium Level 123 mmol/L (136-145); Troponin (Emerg Dept Use Only) < 0.02 ng/mL (0.0-0.045)
[2020-10-30 22:41] LABS: Magnesium 4.1 mg/dL (1.8-2.4)
[2020-10-30] MEDS ORDERED: DIPHENHYDRAMINE 50 MG/ML VIAL ONE (23:24)
[2020-10-30] MEDS ORDERED: FENTANYL CITR 100 MCG/2 ML ONE (23:25)
[2020-10-30] MEDS ORDERED: NA CHLORIDE 0.9% 3,000 ML ONE (23:26)
--- NOTE | 2020-10-31 00:19 | ER ---
Nurse's Notes [facility] Name: Sheldon Silverman Age: 44 yrs Sex: Male : 1975 Arrival Date: 10/30/2020 Time: 21:29 Bed 7 Private MD: Diagnosis: Acute kidney failure, unspecified;Rhabdomyolysis;Hypokalemia Presentation: 10/30 21:35 Chief complaint: Patient states: patient presents to the ED via EMS. patient was ms4 reportedly laying down on the side of the road in [place] and was picked up by PD. patient told PD that he had a cardiac arrest and they called EMS. patient reports he is homeless and is trying to get back to [place] because his left him here. patient having auditory and visual hallucinations upon arrival. patient states "there is a little boy with a blue shirt who keeps following me and I want him arrested". patient denies drug use or psychiatric hx. patient denies SI/HI at this time. patient denies chest pain or any other complaints. patient diaphoretic upon arrival. Coronavirus screen: Client denies travel out of the [place] in the last 14 days. Ebola Screen: Patient negative for fever greater than or equal to 101.5 degrees Fahrenheit, and additional compatible Ebola Virus Disease symptoms Patient denies exposure to infectious person. Patient denies travel to an Ebola-affected area in the 21 days before illness onset. No symptoms or risks identified at this time. Initial Sepsis Screen: Does the patient meet any 2 criteria? No. Patient's initial sepsis screen is negative. Does the patient have a suspected source of infection? No. Patient's initial sepsis screen is negative. Risk Assessment: Do you want to hurt yourself or someone else? Patient reports no desire to harm self or others. Onset of symptoms was October 30, 2020. 21:35 Method Of Arrival: EMS: [facility] ms4 21:35 Acuity: LANE 3 ms4 Triage Assessment: 21:39 General: Appears in no apparent distress. Behavior is agitated, anxious. Pain: ms4 Complains of pain in right leg and left leg. Neuro: Level of Consciousness is confused. Cardiovascular: No deficits noted. Respiratory: No deficits noted. GI: No deficits noted. : No deficits noted. Historical: - Allergies: 21:39 No Known Allergies; ms4 - Home Meds: 21:39 Unable to obtain [Active]; ms4 - Immunization history:: Adult Immunizations unknown, Client reports having NOT received the Covid vaccine. - Social history:: Smoking status: unknown Patient uses Patient/guardian denies using. Screenin:42 Abuse screen: Denies threats or abuse. Denies injuries from another. Nutritional ms4 screening: No deficits noted. Tuberculosis screening: No symptoms or risk factors identified. Fall Risk None identified. Assessment: 21:41 General: Appears in no apparent distress. Behavior is cooperative, anxious. Pain: ms4 Complains of pain in right leg and left leg. Neuro: Level of Consciousness is confused. Cardiovascular: No deficits noted. Respiratory: No deficits noted. GI: No deficits noted. : No deficits noted. Vital Signs: 21:35 BP 109 / 80; Pulse 82; Resp 18; Temp 97.7; Pulse Ox 100% on R/A; Pain 0/10; ms4 ED Course: 21:29 Patient arrived in ED. ld1 21:30 Carlton Rice PA is PHCP. cp 21:30 Red Burns MD is Attending Physician. cp 21:35 Ambreen Diane, LOAN is Primary Nurse. ms4 21:39 Triage completed. ms4 21:40 Patient has correct armband on for positive identification. Placed in gown. Bed in low bs2 position. Call light in reach. Side rails up X2. box sealing machine catcher on. Pulse ox on. NIBP on. Door closed. Noise minimized. Lights dimmed. Warm blanket given. Pillow given. 21:41 Arm band placed on right wrist. EKG completed in triage. Results shown to MD. ms4 21:42 No provider procedures requiring assistance completed. Maintain EMS IV. Dressing ms4 intact. Good blood return noted. Site clean \\T\\ dry. Flushed left antecubital. 21:43 XRAY Chest (1 view) Sent. ms4 21:43 CBC with Diff Sent. ms4 22:13 XRAY Chest (1 view) In Process Unspecified. EDMS 22:17 Basic Metabolic Panel Sent. bs2 23:18 CT Head Brain wo Cont In Process Unspecified. EDMS 23:18 CT Stone Protocol In Process Unspecified. EDMS 10/31 00:17 Anmol Aguirre PA is Hospitalizing Provider. cp 01:36 LAB Add On Sent. bs2 01:37 ETOH Level Sent. bs2 01:37 Urine Microscopic Only Sent. bs2 01:37 Basic Metabolic Panel Sent. bs2 03:03 Sanaz Shah MD is Hospitalizing Provider. cp Administered Medications: 10/30 21:43 Drug: NS 0.9% 1000 ml Route: IV; Rate: 1 bolus; Site: left antecubital; ms4 23:05 Follow up: IV Status: Completed infusion; IV Intake: 1000ml bs2 23:27 Drug: NS 0.9% 1000 ml Route: IV; Rate: 1 bolus; Site: left antecubital; [facility] 10/31 02:14 Follow up: IV Status: Completed infusion 2 10/30 23:27 Drug: NS 0.9% 1000 ml Route: IV; Rate: 1 bolus; Site: left antecubital; [facility] 10/31 02:14 Follow up: IV Status: Completed infusion [facility] 10/30 23:27 Drug: fentaNYL (PF) 25 mcg Route: IVP; Site: left antecubital; [facility] 10/31 01:35 Follow up: Response: No adverse reaction 2 10/30 23:27 Drug: Benadryl (diphenhydrAMINE) 12.5 mg Route: IVP; Site: left antecubital; [facility] 10/31 01:35 Follow up: Response: No adverse reaction bs2 01:00 Drug: Potassium Effervescent Tablet 50 mEq Route: PO; sh9 02:14 Follow up: Response: No adverse reaction bs2 02:13 CANCELLED (dosage): D5-NS with KCL 40 mEq/L 1000 ml IV at 100 ml/hr continuous bs2 02:13 Drug: Thiamine 100 mg Route: IV; Rate: calculated rate; Site: left antecubital; bs2 04:53 Follow up: IV Status: Completed infusion bs2 02:13 Drug: foLIC Acid 1 mg Route: IVPB; Site: left antecubital; bs2 04:53 Follow up: IV Status: Completed infusion bs2 02:54 CANCELLED (Duplicate Order): Rocephin - (cefTRIAXone) 1 grams IVPB once over 30 mins; cp (mix in 50 mL NS) 21:03 CANCELLED (Patient Refused): Ativan (LORazepam) 1 mg IVP once bs2 Intake: 10/30 23:05 IV: 1000ml; Total: 1000ml. bs2 Outcome: 10/31 00:18 Decision to Hospitalize by Provider. cp 21:10 Patient left the ED. jb4 Signatures: Dispatcher [employer] EDWV Carlton Rice PA PA cp Steven Kenney, RN RN jb4 Alis Barlow RN RN ld1 Gayathri Dumont RN RN bs2 Ambreen Diane RN RN ms4 Aida Guan RN RN sh9 Corrections: (The following items were deleted from the chart) 10/30 21:39 21:39 Home Meds: Ibuprofen Oral [Inactive]; ms4 ms4 10/31 00:21 10/30 23:27 CORONAVIRUS+ drawn and sent. 9 EDWV 10/31 07:24 10/30 21:35 Chief complaint: Patient states: patient presents to the ED via EMS. ms4 patient was reportedly laying down on the side of the road in [place] and was picked up by PD. patient told PD that he had a cardiac arrest and they called EMS. patient reports he is homeless and is trying to get back to [place] because his left him here. patient having auditory and visual hallucinations upon arrival. patient states "there is a little boy with a blue shirt who keeps following me and I want him arrested". patient denies drug use or psychiatric hx. patient denies chest pain or any other complaints. patient diaphoretic upon arrival. ms4
--- NOTE | 2020-10-31 00:19 | EDPHYS ---
Physician Documentation [facility] Name: Sheldon Silverman Age: 44 yrs Sex: Male : 1975 Arrival Date: 10/30/2020 Time: 21:29 Bed 7 Private MD: ED Physician Red Burns HPI: 10/30 21:33 This 44 yrs old Male presents to ER via EMS with complaints of Psych Problem. cp 21:33 The patient presents to the emergency department with psychosis, has experienced visual cp hallucinations. Onset: The symptoms/episode began/occurred at an unknown time. Associated signs and symptoms: Pertinent positives; abdominal pain, chest pain, hallucinations, pain all over, Pertinent negatives: fever. Patient presents to the hospital via EMS. EMS reports the patient was found by law enforcement lying on the side of the road, patient was offered a ride by law enforcement where he been started to complain of of being in cardiac arrest. EMS was called and patient was transported to the hospital. Patient reportedly has been hallucinating, and upon questioning patient complains of pain all over. Patient is unable to give history and with repeated questioning reports that he is headed to [place] to be with his .. Historical: - Allergies: 21:39 No Known Allergies; ms4 - Home Meds: 21:39 Unable to obtain [Active]; ms4 - Immunization history:: Adult Immunizations unknown, Client reports having NOT received the Covid vaccine. - Social history:: Smoking status: unknown Patient uses Patient/guardian denies using. ROS: 21:35 Constitutional: Positive for body aches, poor PO intake, Negative for fever. cp 21:35 Cardiovascular: Negative for chest pain. cp 21:35 Respiratory: Negative for cough, shortness of breath, wheezing. 21:35 Abdomen/GI: Negative for abdominal pain, vomiting, diarrhea, constipation. 21:35 Unable to obtain ROS due to altered mental status. Exam: 21:35 ECG was reviewed by the Attending Physician. cp 21:40 Constitutional: The patient appears in no acute distress, alert, awake, cp non-diaphoretic, non-toxic, well developed, unkempt. 21:40 Head/Face: Normocephalic, atraumatic. cp 21:40 Eyes: Pupils: equal, round, and reactive to light and accomodation, Conjunctiva: normal, no exudate, no injection, Sclera: no appreciated abnormality, Lids and lashes: appear normal, bilaterally. 21:40 ENT: External ear(s): are unremarkable, Nose: is normal, Mouth: Lips: dry, Posterior pharynx: Airway: no evidence of obstruction, patent. 21:40 Neck: ROM/movement: is normal, is supple, without pain, no range of motions limitations, no meningismus. 21:40 Chest/axilla: Palpation: crepitus, is not appreciated, tenderness, is not appreciated. 21:40 Cardiovascular: Rate: normal, Rhythm: regular, Edema: is not appreciated, JVD: is not appreciated. 21:40 Respiratory: the patient does not display signs of respiratory distress, Respirations: normal, no use of accessory muscles, no retractions, labored breathing, is not present, Breath sounds: are clear throughout, no decreased breath sounds, no stridor, no wheezing. 21:40 Abdomen/GI: Inspection: abdomen appears normal, Palpation: abdomen is soft and non-tender, in all quadrants. 21:40 Neuro: Orientation: to person, situation, Mentation: able to follow commands, slow to respond, confused, Motor: moves all fours, strength is normal. 21:40 Psych: Behavior/mood is cooperative. Vital Signs: 21:35 BP 109 / 80; Pulse 82; Resp 18; Temp 97.7; Pulse Ox 100% on R/A; Pain 0/10; ms4 MDM: 21:49 Patient medically screened. 10/31 00:30 Data reviewed: vital signs, nurses notes, lab test result(s), EKG, radiologic studies, cp CT scan, plain films. 00:30 Test interpretation: by ED physician or midlevel provider: ECG, plain radiologic cp studies. 10/30 21:31 Order name: Basic Metabolic Panel cp 10/30 21:31 Order name: CBC with Diff cp 10/30 21: Order name: LFT's; Complete Time: 22:48 cp 10/30 22:48 Interpretation: Normal except: TP 9.8; GLOB 6.1; A/G 0.6. cp 10/30 21:31 Order name: Magnesium; Complete Time: 22:48 cp 10/30 21:31 Order name: PT-INR; Complete Time: 22:48 cp 10/30 21:31 Order name: Troponin (emerg Dept Use Only); Complete Time: 22:48 cp 10/30 21:31 Order name: CK; Complete Time: 22:48 cp 10/30 22:48 Interpretation: Abnormal: CPK 583. cp 10/30 21:31 Order name: UDS; Complete Time: 02:52 cp 10/30 21:32 Order name: Basic Metabolic Panel; Complete Time: 22:48 EDMS 10/30 22:49 Interpretation: Normal except: NA 123; K 2.0; CL 72; CO2 36; BUN 101; CRE 8.34; GFR 7. cp 10/30 21:32 Order name: CBC with Automated Diff; Complete Time: 22:48 EDMS 10/30 22:49 Interpretation: Normal except: RDW 15.7; ANGELES% 75.1; LYM% 14.6. cp 10/30 23:43 Order name: Urine Microscopic Only; Complete Time: 02:52 cp 10/31 02:53 Interpretation: Normal except: UWBC TNTC; UBACT 20-50. 10/31 00:59 Order name: ETOH Level; Complete Time: 02:52 cp 10/31 01:00 Order name: LAB Add On 10/31 01:49 Order name: SARS-COV-2 RT PCR; Complete Time: 02:52 EDMS 10/31 06:15 Order name: CBC with Automated Diff; Complete Time: 15:31 EDMS 10/31 06:34 Order name: Comprehensive Metabolic Panel; Complete Time: 15:31 EDMS 10/31 06:34 Order name: Phosphorus; Complete Time: 15:31 EDMS 10/31 06:34 Order name: Creatine Phosphokinase; Complete Time: 15:31 EDMS 10/31 06:34 Order name: Lipid Profile; Complete Time: 15:31 EDMS 10/31 06:34 Order name: T4 Free; Complete Time: 15:31 EDMS 10/31 06:34 Order name: Magnesium; Complete Time: 15:31 EDMS 10/31 06:34 Order name: Thyroid Stimulating Hormone; Complete Time: 15:31 EDMS 10/31 14:04 Order name: Creatine Phosphokinase; Complete Time: 15:31 EDMS 10/31 14:15 Order name: Basic Metabolic Panel; Complete Time: 15:31 EDMS 10/31 14:15 Order name: Uric Acid; Complete Time: 15:31 EDMS 10/31 14:15 Order name: Phosphorus; Complete Time: 15:31 EDMS 10/31 14:15 Order name: Troponin I; Complete Time: 15:31 EDMS 10/31 14:15 Order name: NT PRO-BNP; Complete Time: 15:31 EDMS 10/31 14:15 Order name: Magnesium; Complete Time: 15:31 EDMS 10/30 21:31 Order name: XRAY Chest (1 view); Complete Time: 15:31 cp 10/30 21:31 Order name: EKG; Complete Time: 21:32 cp 10/30 21:31 Order name: Cardiac monitoring; Complete Time: 21:43 cp 10/30 21:31 Order name: EKG - Nurse/Tech; Complete Time: 21:43 cp 10/30 21:31 Order name: IV Saline Lock; Complete Time: 21:43 cp 10/30 21:31 Order name: Labs collected and sent; Complete Time: 21:43 cp 10/30 21:31 Order name: O2 Per Protocol; Complete Time: 21:43 cp 10/30 21:31 Order name: O2 Sat Monitoring; Complete Time: 21:43 cp 10/30 22:55 Order name: CT Head Brain wo Cont; Complete Time: 15:31 cp 10/30 23:00 Order name: CT Stone Protocol; Complete Time: 15:31 cp 10/31 00:17 Order name: IV; Complete Time: 00:58 cp 10/31 01:39 Order name: CONS Physician Consult; Complete Time: 02:14 EDMS 10/31 14:15 Order name: Transferrin Sat/Iron Binding; Complete Time: 15:31 EDMS 10/31 14:15 Order name: Ferritin; Complete Time: 15:31 EDMS 10/31 14:21 Order name: PTH Intact; Complete Time: 15:31 EDMS 10/31 14:46 Order name: Vitamin D, 25 (OH), TOTAL; Complete Time: 15:31 EDMS 10/31 14:48 Order name: Osmolality, Serum; Complete Time: 15:31 EDMS EC/25 21:35 Rate is 80 beats/min. Rhythm is regular. ID interval is shortened at 96 msec. QRS cp interval is prolonged at 126 msec. QT interval is normal. Interpreted by me. Reviewed by me. Administered Medications: 21:43 Drug: NS 0.9% 1000 ml Route: IV; Rate: 1 bolus; Site: left antecubital; ms4 23:05 Follow up: IV Status: Completed infusion; IV Intake: 1000ml bs2 23:27 Drug: NS 0.9% 1000 ml Route: IV; Rate: 1 bolus; Site: left antecubital; [facility] 10/31 02:14 Follow up: IV Status: Completed infusion 2 10/30 23:27 Drug: NS 0.9% 1000 ml Route: IV; Rate: 1 bolus; Site: left antecubital; [facility] 10/31 02:14 Follow up: IV Status: Completed infusion 2 10/30 23:27 Drug: fentaNYL (PF) 25 mcg Route: IVP; Site: left antecubital; [facility] 10/31 01:35 Follow up: Response: No adverse reaction 2 10/30 23:27 Drug: Benadryl (diphenhydrAMINE) 12.5 mg Route: IVP; Site: left antecubital; [facility] 10/31 01:35 Follow up: Response: No adverse reaction bs2 01:00 Drug: Potassium Effervescent Tablet 50 mEq Route: PO; sh9 02:14 Follow up: Response: No adverse reaction bs2 02:13 CANCELLED (dosage): D5-NS with KCL 40 mEq/L 1000 ml IV at 100 ml/hr continuous bs2 02:13 Drug: Thiamine 100 mg Route: IV; Rate: calculated rate; Site: left antecubital; bs2 04:53 Follow up: IV Status: Completed infusion bs2 02:13 Drug: foLIC Acid 1 mg Route: IVPB; Site: left antecubital; bs2 04:53 Follow up: IV Status: Completed infusion bs2 02:54 CANCELLED (Duplicate Order): Rocephin - (cefTRIAXone) 1 grams IVPB once over 30 mins; cp (mix in 50 mL NS) 21:03 CANCELLED (Patient Refused): Ativan (LORazepam) 1 mg IVP once bs2 Disposition: 03:11 Chart complete. cp 11/01 13:02 Co-signature as Attending Physician, Red Burns MD. pkl Disposition Summary: 10/31/20 00:18 Hospitalization Ordered Hospitalization Status: Inpatient Admission cp Condition: Fair cp Problem: new cp Symptoms: have improved cp Bed/Room Type: Standard cp Location: [facility] ER HOLD(10/31/20 02:03) bb Room Assignment: ERHOLD-(10/31/20 02:03) bb Provider: Sanaz Shah(10/31/20 03:03) cp Diagnosis - Acute kidney failure, unspecified cp - Rhabdomyolysis cp - Hypokalemia cp Forms: - Medication Reconciliation Form cp - SBAR form cp Signatures: Dispatcher [employer] EDMS Red Burns MD MD pkl Beryl Hernández RN RN bb Carlton Rice PA PA cp Gayathri Dumont, RN RN bs2 Ambreen Diane RN RN ms4 Aida Guan RN RN sh9 Corrections: (The following items were deleted from the chart) 10/30 21:39 21:39 Home Meds: Ibuprofen Oral [Inactive]; ms4 ms4 10/31 00:21 10/30 23:02 CORONAVIRUS+MR.LAB.BRZ ordered. EDMS EDMS 10/31 01:35 00:17 Wright ordered. cp bs2 01:36 10/30 21:31 Urine Dipstick-Ancillary ordered. cp bs2 10/31 02:03 00:18 Telemetry/MedSurg (Inpatient) cp bb 02:03 00:18 cp bb 02:13 00:17 D5-NS with KCL 40 mEq/L 1000 ml IV at 100 ml/hr continuous ordered. cp bs2 02:54 02:54 Rocephin - (cefTRIAXone) 1 grams IVPB once over 30 mins; (mix in 50 mL NS) cp ordered. cp 03:03 00:18 Anmol Aguirre cp cp 21:03 20:28 Ativan (LORazepam) 1 mg IVP once ordered. cp bs2
[2020-10-31] MEDS ORDERED: POTASSIUM 25 MEQ EFFERV TAB ONE (01:04)
[2020-10-31] MEDS ORDERED: MORPHINE 2 MG/ML SYR IV PRN (01:47)
[2020-10-31] MEDS ORDERED: ACETAMINOPHEN 500 MG TAB PO PRN (01:47)
[2020-10-31] MEDS ORDERED: ONDANSETRON 4 MG/2 ML VIAL IV PRN (01:47)
[2020-10-31] MEDS ORDERED: CEFTRIAXONE 1 GM/NS 50 ML 1 GM/50 ML BAG IV SCH (01:53)
[2020-10-31] MEDS ORDERED: FENTANYL CITR 100 MCG/2 ML IV ONE (01:56)
[2020-10-31] MEDS ORDERED: CEFTRIAXONE/SWI 1gm 1 GM/10 ML SYR IV SCH (02:00)
[2020-10-31] MEDS ORDERED: D5.45NS W/KCL 40MEQ 40 MEQ/1,000 ML BAG IV SCH (02:00)
[2020-10-31] MEDS: D5.45NS W/KCL 20MEQ 20 MEQ/1,000 ML BAG IV SCH ×2 (02:00→13:51)
[2020-10-31] MEDS ORDERED: D5.45NS W/KCL 20MEQ 1,000 ML IV ONE ×2 (02:02→14:00)
[2020-10-31 02:06] LABS: Urine Bacteria 20-50 /HPF (NONE SEEN); Urine RBC <5 /HPF (NONE SEEN)
[2020-10-31 02:07] LABS: Barbiturates NEGATIVE (NEGATIVE); Benzodiazepines NEGATIVE (NEGATIVE); Cocaine NEGATIVE (NEGATIVE); METHAMPHETAM NEGATIVE (NEGATIVE); Methadone NEGATIVE (NEGATIVE); Opiates NEGATIVE (NEGATIVE); Phencyclidine NEGATIVE (NEGATIVE); THC Cannibis NEGATIVE (NEGATIVE)
--- NOTE | 2020-10-31 02:08 | P.HP ---
Certification for Inpatient Patient admitted to: Inpatient With expected LOS: >2 Midnights Patient will require the following post-hospital care: None Practitioner: I am a practitioner with admitting privileges, knowledge of patient current condition, hospital course, and medical plan of care. Services: Services provided to patient in accordance with Admission requirements found in Title 42 Section 412.3 of the Code of Federal Regulations Patient History Date of Service: 10/31/20 Reason for admission: MARCIANO, hypokalemia History of Present Illness: Mr. Silverman is a 44 yo M with ADPKD who was brought in by police today when he was found walking down the road by [place]. He has auditory verbal hallucinations and is unable to give a history. He says he is from [place] and that his friends dropped him off in the ED. He says that he has ' three itmes' and reports that there is a little boy follow him around in his room. On arrival, he was very diaphoretic. His body is covered in track [place]. Na 123. K 2.0. Cl 72. CO2 36. BUN 101. Cr 8.34. GFR 7. Mg 4.1. CK 583. CT head shows no acute intracranial abnormality. CTAP shows enlarged multicystic kidneys and numerous cysts in the liver suggestive of ADPKD, similar to prior imaging. UA and UDS pending. Allergies No Known Allergies Allergy (Unverified 10/31/20 01:45) - Past Medical/Surgical History -: ADPKD Past Surgical History: Unable to obtain - Social History Smoking Status: Current every day smoker Alcohol use: Yes CD- Drugs: Yes Caffeine use: Yes Place of Residence: Home Review of Systems is unable to be obtained Physical Examination - Physical Exam General: Alert, In no apparent distress, Cachectic, Disheveled HEENT: Atraumatic, PERRLA, Mucous membr. moist/pink, EOMI, Sclerae nonicteric Neck: Supple, 2+ carotid pulse no bruit, No LAD, Without JVD or thyroid abnormality Respiratory: Clear to auscultation bilaterally, Normal air movement Cardiovascular: Regular rate/rhythm, Normal S1 S2 Gastrointestinal: Normal bowel sounds, No ascites, No tenderness, No masses, No rebound, No guarding Musculoskeletal: No tenderness Integumentary: Rash(es), Skin lesion Neurological: Normal strength at 5/5 x4 extr, Normal tone, Sensation intact, Abnormal speech, Abnormal affect Lymphatics: No axilla or inguinal lymphadenopathy - Studies Laboratory Data (last 24 hrs) 10/30/20 21:34: PT 13.1 H, INR 1.14 10/30/20 21:34: WBC 10.40, Hgb 14.9, Hct 42.4, Plt Count 312 10/30/20 21:34: Sodium 123 L, Potassium 2.0 L*, BUN 101 H, Creatinine 8.34 H*, Glucose 106, Magnesium 4.1 H* D, Total Bilirubin 0.7, AST 28, ALT 24, Alkaline Phosphatase 88 Assessment and Plan - Problems (Diagnosis) (1) ADPKD (autosomal dominant polycystic kidney disease) Current Visit: Yes Status: Chronic (2) MARCIANO (acute kidney injury) Current Visit: Yes Status: Acute (3) Hypokalemia Current Visit: Yes Status: Acute (4) Hallucinations Current Visit: Yes Status: Acute (5) UTI (urinary tract infection) Current Visit: Yes Status: Acute - Plan nephrology consulted, on telemetry continue IVF hydration, potassium replacement, thiamine and folic acid repeat BMP in the AM continue IV ceftriaxone pain management as needed social work consulted, need to get in contact with family, inpatient psych placement likely needed Discharge Plan: Psychiatry Plan to discharge in: 72 Hours - Advance Directives Does patient have a Living Will: No Does patient have a Durable POA for Healthcare: No - Code Status/Comfort Care Code Status Assessed: Yes (full code ) Critical Care: No Time Spent Managing Pts Care (In Minutes): 70
[2020-10-31] MEDS ORDERED: THIAMINE 200 MG/2 ML INJ ONE (02:20)
[2020-10-31] MEDS ORDERED: FENTANYL CITR 100 MCG/2 ML ONE (02:21)
[2020-10-31] MEDS ORDERED: FOLIC ACID 5 MG/ML VIAL ONE (02:22)
[2020-10-31] MEDS ORDERED: CEFTRIAXONE/SWI 1gm 1 GM/10 ML SYR ONE (02:22)
[2020-10-31] MEDS ORDERED: HALOPERIDOL LACT 5 MG/ML INJ ONE (04:22)
[2020-10-31 06:12] LABS: Basophils % 0.6 % (0-1.3); Hematocrit 34.1 % (39.6-49.0); Lymphocytes % 21.1 % (15.3-44.8); MPV 9.1 fL (7.6-11.3)
--- NOTE | 2020-10-31 06:30 | P.CNS ---
Date of Consult: 10/31/20 Reason for Consult: MARCIANO, CKD, electrolyte and acid base derangements Requesting Physician: Sanaz Shah Chief Complaint: MARCIANO, hypokalemia History of Present Illness: 44M w/ PMHx of ADPKD who was brought in by the police after he was found confused wandering on the street. He was noted to have multiple skin rashes and has severe HPI as well as other metabolic derangements. He was reported to have auditory and verbal hallucinations. Head imaging via CT scan was unremarkable. Utox is negative. He has pyuria and started on antibiotics. He received IV fluids and his MARCIANO is now improving. He is currently undergoing electrolyte replacement. Allergies No Known Allergies Allergy (Unverified 10/31/20 01:45) - Past Medical/Surgical History -: ADPKD - Social History Smoking Status: Unknown if ever smoked Alcohol use: Yes CD- Drugs: Yes Caffeine use: Yes Place of Residence: Home Review of Systems Other: unable to obtain as patient is currently disoriented/confused. Physical Examination General: Other (unkempt) HEENT: Atraumatic, Normocephalic Neck: Supple, JVD not distended Respiratory: Normal air movement Cardiovascular: No rubs, No murmurs Gastrointestinal: Soft and benign, Non-distended Musculoskeletal: No clubbing Integumentary: Rash(es), Skin lesion Neurological: Other (confused) Urinary: Other (no bladder distention) External genitalia: Deferred Rectal: Deferred Laboratory Data (last 24 hrs) 10/30/20 21:34: PT 13.1 H, INR 1.14 10/30/20 21:34: WBC 10.40, Hgb 14.9, Hct 42.4, Plt Count 312 10/30/20 21:34: Sodium 123 L, Potassium 2.0 L*, BUN 101 H, Creatinine 8.34 H*, Glucose 106, Magnesium 4.1 H* D, Total Bilirubin 0.7, AST 28, ALT 24, Alkaline Phosphatase 88 Conclusions/Impression: # MARCIANO on advanced CKD MARCIANO likely 2/2 prerenal state +/- ATN from prolonged prerenal, improving Has advanced CKD 2/2 ADPKD PTH sig elevated indicative of advanced CKD at least stage 4 Follow-up urine chemistry and random urine protein creatinine ratio troponin negative BNP slightly elevated Encourage by mouth fluid intake # UTI Continue antibiotics Follow-up urine culture # Hyponatremia Monitor # Hypokalemia Received KCl repletion today # Hypocalcemia Corrected serum calcium 7.7 Received IV calcium gluconate today # Alkalosis Follow-up ABG # Anemia Monitor H&H # Secondary hyperPTH Start calcitriol po daily # Acute encephalopathy Eval/mngt per other services
[2020-10-31 06:31] LABS: Albumin 2.6 g/dL (3.4-5.0); Bilirubin Total 0.4 mg/dL (0.2-1.0); Magnesium 3.3 mg/dL (1.8-2.4); Phosphorus 8.5 mg/dL (2.5-4.9); Protein, Total 6.9 g/dL (6.4-8.2); Thyroid Stimulating Hormone 1.04 uIU/mL (0.360-3.740)
[2020-10-31 06:33] LABS: Potassium 2.3 mmol/L (3.5-5.1)
--- NOTE | 2020-10-31 08:45 | RAD REPORT ---
EXAM DESCRIPTION: RAD - Chest Single View - 10/30/2020 10:13 pm CLINICAL HISTORY: pain all over Chest pain. COMPARISON: Chest Single View dated 09/05/2020 FINDINGS: Portable technique limits examination quality. The lungs are grossly clear. The heart is normal in size. No displaced fractures. IMPRESSION: No acute intrathoracic process suspected.
[2020-10-31] MEDS ORDERED: THIAMINE 200 MG/2 ML INJ IVP SCH (09:00)
[2020-10-31] MEDS ORDERED: FOLIC ACID 5 MG/ML VIAL IVP SCH (09:00)
[2020-10-31] MEDS ORDERED: HEPARIN 5000 UNIT/ML 1 ML VIAL SQ SCH (09:00)
--- NOTE | 2020-10-31 12:05 | RAD REPORT ---
EXAM DESCRIPTION: CT Head Without Intravenous Contrast CLINICAL HISTORY: The patient is 44 years old and is Male; kidney failure TECHNIQUE: Axial computed tomography images of the head/brain without intravenous contrast. Sagitt al and coronal reformatted images were created and reviewed. This CT exam was performed using one o r more of the following dose reduction techniques: automated exposure control, adjustment of the mA and/or kV according to patient size, and/or use of iterative reconstruction technique. COMPARISON: CT head September 05, 2020. FINDINGS: Brain: Unremarkable. No hemorrhage. No significant white matter disease. No edema. Ventricles: Unremarkable. No ventriculomegaly. Bones/joints: See below. Soft tissues: Unremarkable. Sinuses: Opacification of a right frontal sinus and some of the right ethmoid air cells. Mastoid air cells: Unremarkable as visualized. No mastoid effusion. Nasal cavity/septum: Leftward deviation of the nasal bones, similar to prior. * A single impression for all exams can be found at the end of this report EXAM DESCRIPTION: CT Abdomen and Pelvis Without Intravenous Contrast CLINICAL HISTORY: The patient is 44 years old and is Male; kidney failure TECHNIQUE: Axial computed tomography images of the abdomen and pelvis without intravenous contrast. Sagittal and coronal reformatted images were created and reviewed. This CT exam was performed usi ng one or more of the following dose reduction techniques: automated exposure control, adjustment o f the mA and/or kV according to patient size, and/or use of iterative reconstruction technique. COMPARISON: CT abdomen and pelvis September 05, 2020. FINDINGS: Lung bases: Unremarkable. No mass. No consolidation. ABDOMEN: Liver: Numerous cysts throughout the liver, similar to prior. Gallbladder and bile ducts: Gallbladder is contracted. No calcified stones. No ductal dilation. Pancreas: Unremarkable. No ductal dilation. Spleen: Unremarkable. No splenomegaly. Adrenals: The adrenal glands are poorly visualized. Kidneys and ureters: Enlarged multicystic kidneys suggestive of autosomal dominant polycystic ki dney disease, similar to prior. No obstructing stones. Stomach and bowel: Unremarkable. No obstruction. No mucosal thickening. PELVIS: Appendix: No findings to suggest acute appendicitis. Bladder: Unremarkable. No stones. Reproductive: Unremarkable as visualized. ABDOMEN and PELVIS: Intraperitoneal space: Unremarkable. No free air. No significant fluid collection. Bones/joints: No acute fracture. No dislocation. Soft tissues: Unremarkable. Vasculature: Unremarkable. No abdominal aortic aneurysm. Lymph nodes: Unremarkable. No enlarged lymph nodes. The * A single impression for all exams can be found at the end of this report IMPRESSION: CT Head Without Intravenous Contrast: No acute intracranial abnormality. CT Abdomen and Pelvis Without Intravenous Contrast: Enlarged multicystic kidneys and numerous cysts in the liver suggestive of autosomal dominant poly cystic kidney disease, similar to prior. No acute finding. Electronically signed by: Nikita Hickman MD 10/30/2020 11:55 PM CDT Due to temporary technical issues with the PACS/Fluency reporting system, reports are being signed by the in house radiologist without review as a courtesy to ensure prompt reporting. The interpreting r adiologist is fully responsible for the content of the report.
[2020-10-31] MEDS ORDERED: CALCIUM GLUC 10% INJ 9.3 MEQ in NA CHLORIDE 0.9% 100 ML IV ONE (13:00)
[2020-10-31] MEDS: KCL 20 MEQ/100 mL IVPB 20 MEQ/100 ML BAG IV SCH ×2 (13:55→17:21)
[2020-10-31 14:11] LABS: BUN Blood Urea Nitrogen 88 mg/dL (7-18); Bicarbonate 33 mmol/L (21-32); Ferritin 189.6 ng/mL (26-388); Glucose Level 398 mg/dL (74-106); NT PRO-BNP 488 pg/mL (<125); Phosphorus 5.8 mg/dL (2.5-4.9); Potassium 3.8 mmol/L (3.5-5.1); Sodium Level 125 mmol/L (136-145); Transferrin 155 mg/dL (200-360); Troponin I < 0.02 ng/mL (0.0-0.045); Uric Acid 12.2 mg/dL (3.5-7.2)
[2020-10-31] MEDS ORDERED: KCL 20 MEQ/100 mL IVPB 20 MEQ/100 ML BAG IV ONE (14:18)
[2020-10-31 16:48] VITALS: O2SAT 96
[2020-10-31 21:16] VITALS: BP 109/80; TEMP 97.7
[2020-10-31] MEDS ORDERED: CALCITROL 0.25 MCG CAP PO SCH (22:00)
[2020-11-01] MEDS ORDERED: FOLIC ACID 5 MG/ML VIAL IV SCH (02:00)
[2020-11-01] MEDS ORDERED: THIAMINE 200 MG/2 ML INJ IV SCH (02:00)
--- NOTE | 2020-11-01 07:10 | P.PN ---
Subjective Date of Service: 11/07/20 Chief Complaint: MARCIANO, hypokalemia Physical Examination - Vital Signs Temperature: 97.7 F Blood Pressure: 109/80 Pulse: 82 Respirations: 18 Assessment And Plan - Plan Entered in error
--- NOTE | 2020-11-05 05:58 | P.DS ---
Discharge Date: 11/01/20 Disposition: AMA-LEFT AGAINST MEDICAL ADVIC Discharge Condition: FAIR Reason for Admission: MARCIANO, hypokalemia Brief History of Present Illness: Mr. Silverman is a 44 yo M with ADPKD who was brought in by police today when he was found walking down the road by [place]. He has auditory verbal hallucinations and is unable to give a history. He says he is from [place] and that his friends dropped him off in the ED. He says that he has ' three itmes' and reports that there is a little boy follow him around in his room. On arrival, he was very diaphoretic. His body is covered in track [place]. Na 123. K 2.0. Cl 72. CO2 36. BUN 101. Cr 8.34. GFR 7. Mg 4.1. CK 583. CT head shows no acute intracranial abnormality. CTAP shows enlarged multicystic kidneys and numerous cysts in the liver suggestive of ADPKD, similar to prior imaging. UA and UDS pending. Hospital Course: Patient decided to leave against medical advice. Patient has paranoid schizophrenia. Alert oriented to person place and time. Patient is okay to make that decision. Vital Signs/Physical Exam: Temp Pulse Resp BP Pulse Ox 97.7 F 82 18 109/80 11/01/20 07:10 11/01/20 07:10 11/01/20 07:10 11/01/20 07:10 General: Alert, In no apparent distress, Oriented x3 Laboratory Data at Discharge: WBC Cancelled 11/01/20 05:00 Hgb Cancelled 11/01/20 05:00 Hct Cancelled 11/01/20 05:00 Plt Count Cancelled 11/01/20 05:00 PT 13.1 SECONDS (9.5-12.5) H 10/30/20 21:34 INR 1.14 10/30/20 21:34 Sodium Cancelled 11/01/20 05:00 Potassium Cancelled 11/01/20 05:00 BUN Cancelled 11/01/20 05:00 Creatinine Cancelled 11/01/20 05:00 Glucose Cancelled 11/01/20 05:00 Uric Acid 12.2 mg/dL (3.5-7.2) H 10/31/20 13:20 Phosphorus Cancelled 11/01/20 05:00 Magnesium Cancelled 11/01/20 05:00 Total Bilirubin Cancelled 11/01/20 05:00 AST Cancelled 11/01/20 05:00 ALT Cancelled 11/01/20 05:00 Alkaline Phosphatase Cancelled 11/01/20 05:00 Troponin I Cancelled 10/31/20 17:47 Triglycerides 106 mg/dL (<150) 10/31/20 05:45 Cholesterol 105 mg/dL (<200) 10/31/20 05:45 HDL Cholesterol 24 mg/dL (40-60) L 10/31/20 05:45 Cholesterol/HDL Ratio 4.38 10/31/20 05:45 Physician Discharge Instructions: Patient left against medical advice Followup: NONE,NONE [Primary Care Provider] - Time spent managing pt's care (in minutes): 35
== END 2020-11-01 08:18 | disposition left against medical advice (07) | DRG 683 ==
LOC: ER 21:10 → ERHOLD 10-31 01:41
PROVIDERS: ADMIT Hospitalist; ATTEND Hospitalist
DX: N17.0 Acute kidney failure with tubular necrosis (principal); Q61.2 Polycystic kidney, adult type; N39.0 Urinary tract infection, site not specified; E87.1 Hypo-osmolality and hyponatremia; E87.3 Alkalosis; G93.40 Encephalopathy, unspecified; F20.0 Paranoid schizophrenia; N25.81 Secondary hyperparathyroidism of renal origin; N18.2 Chronic kidney disease, stage 2 (mild); E87.6 Hypokalemia; E83.51 Hypocalcemia; Z53.29 Procedure and treatment not carried out because of patient's decision for other reasons; Z20.822 Contact with and (suspected) exposure to COVID-19
CPT/HCPCS: 36415; 70450; 71045; 74176; 76377; 80048; 80053; 80061; 80076; 80307; 80320; 81015; 82306; 82550; 82728; 83540; 83735; 83880; 83930; 83970; 84100; 84439; 84443; 84466; 84484; 84550; 85025; 85610; 87077; 87086; 87088; 87186; 93005; 94760; 96361; 96365; 96366; 96368; 96375; 99284; J0610; J0696; J1200; J1630; J3010; J3411; J3480; J7030; U0003